=== PATIENT | female | born 1935 | race Caucasian/White ===

== ENCOUNTER 2016-11-18 09:35 | Observation (INO) ==
[2016-11-18] MEDS ORDERED: methylPREDNISolone SOD SUC 125 MG/2 ML VIAL IV STA (10:38)
[2016-11-18] MEDS ORDERED: FUROSEMIDE 100 MG/10 ML VIAL IV STA (10:38)
[2016-11-18] MEDS ORDERED: AZITHROMYCIN INJ 500 MG in SODIUM CHLORIDE 0.9% 250 ML IV STA (10:38)
[2016-11-18] MEDS ORDERED: ONDANSETRON 4 MG/2 ML VIAL IV STA (10:38)
[2016-11-18 10:46] LABS: Basophils % 0.2 % (0.0-0.8); Eosinophils # 0.1 10*3/uL (0.0-0.87); Eosinophils % 0.5 % (0.00-10.9); Hematocrit 36.7 VOL% (35.7-47.0); Hemoglobin 12.6 GM/DL (12.0-16.0); Immature Granulocytes % 0.7 %; Immature Granulocytes Absolute 0.07 #; Lymphocytes # 1.3 10*3/uL (1.4-4.0); Lymphocytes % 13.7 % (21.3-54.2); Mean Corpuscular HGB Conc 34.3 GM/DL (32-36); Mean Corpuscular Hemoglobin 31 PG (27-34); Mean Corpuscular Volume 90.6 FL (87-102); Mean Platelet Volume 9.5 FL (9.6-12.0); Monocytes # 1.1 10*3/uL (0.11-0.8); Monocytes % 11.2 % (1.7-12.7); Neutrophils # 7.1 10*3/uL (1.4-7.4); Neutrophils % 73.7 % (38.7-73.9); Platelet Count 170 T/CUMM (130-400); Red Blood Count 4.05 MC/CUMM (3.8-5.5); Red Cell Distribution Width 12.4 % (9.3-17.3); White Blood Count 9.7 T/CUMM (4-12)
[2016-11-18] MEDS ORDERED: ALBUTEROL 2.5 MG/3 ML NEB RESP TX SCH (11:00)
[2016-11-18 11:02] LABS: Albumin 3.2 G/DL (3.4-5.0); Bilirubin,Total 0.9 MG/DL (0.2-1.0); Magnesium 2.1 MG/DL (1.8-2.4); Osmolality,Calculated 272.8 MOS/KG (273-304); Potassium 3.8 MMOL/L (3.5-5.1); Total Protein 6.9 G/DL (6.4-8.3); Troponin I Only 0.068 NG/ML (0.00-0.045)
[2016-11-18 11:04] LABS: D-Dimer 1.3 MG/L FEU; PT Patient Result 10.8 SECS
[2016-11-18] MEDS ORDERED: AZITHROMYCIN 500 MG VIAL IV ONE (11:13)
[2016-11-18] MEDS ORDERED: FUROSEMIDE 40 MG/4 ML VIAL ONE (11:13)
[2016-11-18] MEDS ORDERED: ONDANSETRON 4 MG/2 ML VIAL ONE (11:13)
[2016-11-18] MEDS ORDERED: methylPREDNISolone SOD SUC 125 MG/2 ML VIAL ONE (11:14)
--- NOTE | 2016-11-18 11:42 | XRay Report ---
Exam: XR chest 1V portable Indication: Shortness of breath Comparison study: March 07, 2016 Findings: The heart, mediastinum and bony structures are stable from prior. Lungs are mildly hyperexpanded with diffuse interstitial scarring changes, which appear similar prior. Granulomatous calcified nodules are also noted in the perihilar regions bilaterally. Median sternotomy wiring appears stable from prior. Stable blunting of the left costophrenic angle. There is no focal consolidation, pneumothorax or pleural effusion identified. Impression: Chronic interstitial scarring and postsurgical changes. Otherwise, no significant change. PROCEDURE INTERPRETED AT [facility] DEPARTMENT OF RADIOLOGY Final Report Signed by: Torito Mcdowell
--- NOTE | 2016-11-18 11:43 | Emergency Department Note ---
ITyrone Kasabria, am scribing for, and in the presence of, Harman Morales MD 11:10. ICarmen Charles R, MD, personally performed the services described in this documentation, ascribed by Annamarie Hansen in my presence, and it is both accurate and complete . Arrival - Arrival Chief Complaint: Upper Respiratory Stated Complaint: SOB/BAD CONGESTION/DIZZINESS ED Nursing Triage Note: Pt states that she has been having some body aches with cough and congestion x 1 week - Pt states that she does have a productive cough - pt states that she has been taking OTC meds without relief Mode of Arrival: Ambulatory Limitations: No Limitations Source: Patient Time Seen by Provider: 11/18/16 10:22 - History of Present Illness HPI Narrative: Pt is a 81 y/o white female presenting to the ED with c/o body aches, cough, congestion that onset one week ago. She states she did not come to the ED earlier because she thought it would get better. Pt's cough is productive with dark brown sputum. She has been taking OTC medications with no relief. Pt denies fever, chills, nausea, vomiting, diarrhea, abdominal pain, back pain, VERDIN , and vision change. Consistency: constant Severity: moderate Date of Last Menstrual Period: hyster Allergies/Adverse Reactions: Allergies Allergy/AdvReac Type Severity Reaction Status Date / Time codeine Allergy Intermediate RASH Verified 03/06/16 02:50 Penicillins Allergy Intermediate RASH Verified 03/06/16 02:50 Sulfa (Sulfonamide Allergy Unknown/Unable Verified 03/06/16 02:50 Antibiotics) to obtain Home Medications: Home Medications Medication Instructions Recorded Confirmed Type Citalopram [CeleXA] 10 mg PO BEDTIME 03/06/16 11/18/16 History Multivitamin with Minerals [One 1 each PO DAILY 03/06/16 11/18/16 History Daily 50 Plus] Aspirin EC Tab 81 mg PO DAILY tablet 03/09/16 11/18/16 Rx Lisinopril [Prinivil] 20 mg PO DAILY #30 tablet 03/09/16 11/18/16 Rx Potassium Chloride Cap/Tab [K Dur] 20 meq PO DAILY tablet 03/09/16 11/18/16 Rx traZODone [Desyrel] 50 mg PO BEDTIME tablet 03/09/16 11/18/16 Rx Carvedilol [Coreg] 6.25 mg PO DAILY 11/18/16 11/18/16 History Furosemide Tab [Lasix Tab] 20 mg PO DAILY PRN 11/18/16 11/18/16 History Magnesium Oxide 400 mg PO DAILY 11/18/16 11/18/16 History Rosuvastatin [Crestor] 20 mg PO DAILY 11/18/16 11/18/16 History hydrALAZINE TAB [Apresoline Tab] 25 mg PO TID 11/18/16 11/18/16 History Medical,Surgical,& Family Hx - Medical History Cardio: History of: Cardiac Dysrhythmia, CHF, CAD, Hypertension, [place] (Dr Gonsales) , Cardiovascular Problems No history of: Congenital Heart Disease Psychological: History of: Anxiety Disorders (SVTPt denies) Neurology: History of: Dementia Endocrine: History of: Dyslipidemia Respiratory: History of: Pneumonia Genitourinary: History of: Bladder Problem Musculoskeletal: History of: Back/Neck Problems ("pinched nerve") Hematology: History of: Anemia - Surgical History Cardiac Surgeries: Sugical HX of: Femoral-Popliteal Bypass Graft, Cardiac Catheterization, Cardiac Surgery (TRIPLE BIPASS 15 YEARS AGO) Abdominal Surgeries: Surgical HX of: Appendectomy Reproductive Surgeries: Surgical HX of;: Genitourinary Surgery (bladder surgery) , Hysterectomy - Family History Family History: Reports;: Family Diabetes, Family Heart Disease, Family Hypertension, Family Stroke Denies;: Family Anesthesia Reaction, Family Cancer, Family Psychiatric Problems - Social History Smoking Status: Never smoker Frequency of Alcohol Use: None Type of Drug Use: None Exam Vital Signs: Vital Signs Temperature 98.9 F 11/18/16 10:00 Pulse Rate 78 11/18/16 11:36 Respiratory Rate 11/18/16 11:36 Blood Pressure 219/89 11/18/16 10:00 O2 Sat by Pulse Oximetry 98 11/18/16 11:36 - General General appearance: alert, in no apparent distress - Head Head exam: Present: atraumatic, normocephalic, normal inspection - Eye Eye exam: Present: normal appearance, PERRL, EOMI - ENT ENT exam: Present: normal exam, normal oropharynx, mucous membranes moist, TM's normal bilaterally, normal external ear exam - Neck Neck exam: Present: normal inspection, full ROM, trachea midline. Absent: tenderness - Chest Chest inspection: Present: normal inspection, symmetric chest wall rise - Respiratory Respiratory exam: Present: rales, wheezes (bilaterally ) - Cardiovascular Cardiovascular exam: Present: regular rate, normal rhythm, normal heart sounds - Abdominal Exam Abdominal exam: Present: soft, normal bowel sounds. Absent: distention, tenderness - Extremities Exam Extremities exam: Present: normal inspection, full ROM, normal capillary refill , pedal edema (+1 edema ). Absent: tenderness - Back Exam Back exam: Present: normal inspection, full ROM. Absent: tenderness - Neurological Exam Neurological exam: Present: alert, oriented X3, CN II-XII intact, normal gait, reflexes normal - Psychiatric Psychiatric exam: Present: normal affect, normal mood - Skin Skin exam: Present: warm, dry, intact, normal color. Absent: rash, diaphoresis Course - Consultations Consultation #1: Hospitalist will admit patient Time: 12:34 Results - Labs CBC & BMP: 11/18/16 10:44 11/18/16 10:44 Lab Results: I have reviewed the patients labs Disposition Clinical Impression: Upper respiratory infection, CHF (congestive heart failure), Bronchitis, Acute dyspnea Case discussed with: patient Disposition: Still a Patient Condition: Stable Time of Disposition: 12:34
--- NOTE | 2016-11-18 12:18 | EKG Report ---
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
[2016-11-18] MEDS ORDERED: hydrALAZINE 20 MG/1 ML VIAL IV PRN (13:13)
--- NOTE | 2016-11-18 13:24 | Hospitalist History & Physical ---
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 Guajardo is a 81 year old female who was in her usual state of health till about 4-5 days ago. She started coughing and is been bringing up yellow sputum which is fairly thick. She had some subjective fever. She took some over-the- counter medication but today her symptoms got worse. She felt some chest tightness with shortness of breath and cough and came to the emergency room. The ER physician evaluated her did notice some wheezing as well as some rhonchi and felt she would best benefit from overnight admission. She denies any nausea vomiting she does not smoke cigarettes she does not have any history of COPD or asthma. She has hypertension and had heart disease with prior bypass surgery 50 years ago and has done quite well. She does not endorse a definite history of heart failure but does take low-dose Lasix on a when necessary basis. Assessment and plan for 11/18/2016: Shortness of breath with acute bronchitis and sputum production Possible Combivent a mild pulmonary vascular congestion Hypertension Coronary artery disease Patient be admitted to our service for overnight observation. We will start on some nebulizers mucomyist for breaking loose her mucus along with DuoNeb nebulizers. We will also treat her with oral antibiotics and some steroids. I' m hoping this will improve her symptoms and every she can be discharged home tomorrow with outpatient management. Home Medications Medication Instructions Recorded Confirmed Type Citalopram [CeleXA] 10 mg PO BEDTIME 03/06/16 11/18/16 History Multivitamin with Minerals [One 1 each PO DAILY 03/06/16 11/18/16 History Daily 50 Plus] Aspirin EC Tab 81 mg PO DAILY tablet 03/09/16 11/18/16 Rx Lisinopril [Prinivil] 20 mg PO DAILY #30 tablet 03/09/16 11/18/16 Rx Potassium Chloride Cap/Tab [K Dur] 20 meq PO DAILY tablet 03/09/16 11/18/16 Rx traZODone [Desyrel] 50 mg PO BEDTIME tablet 03/09/16 11/18/16 Rx Carvedilol [Coreg] 6.25 mg PO DAILY 11/18/16 11/18/16 History Furosemide Tab [Lasix Tab] 20 mg PO DAILY PRN 11/18/16 11/18/16 History Magnesium Oxide 400 mg PO DAILY 11/18/16 11/18/16 History Rosuvastatin [Crestor] 20 mg PO DAILY 11/18/16 11/18/16 History hydrALAZINE TAB [Apresoline Tab] 25 mg PO TID 11/18/16 11/18/16 History Allergies Allergy/AdvReac Type Severity Reaction Status Date / Time codeine Allergy Intermediate RASH Verified 03/06/16 02:50 Penicillins Allergy Intermediate RASH Verified 03/06/16 02:50 Sulfa (Sulfonamide Allergy Unknown/Unable Verified 03/06/16 02:50 Antibiotics) to obtain Medical,Surgical,& Family Hx - Medical History Cardio: History of: Cardiac Dysrhythmia, CHF, CAD, Hypertension, [place] (Dr Gonsales) , Cardiovascular Problems No history of: Congenital Heart Disease Psychological: History of: Anxiety Disorders (SVTPt denies) Neurology: History of: Dementia Endocrine: History of: Dyslipidemia Respiratory: History of: Pneumonia Genitourinary: History of: Bladder Problem Musculoskeletal: History of: Back/Neck Problems ("pinched nerve") Hematology: History of: Anemia - Surgical History Cardiac Surgeries: Sugical HX of: Femoral-Popliteal Bypass Graft, Cardiac Catheterization, Cardiac Surgery (TRIPLE BIPASS 15 YEARS AGO) Abdominal Surgeries: Surgical HX of: Appendectomy Reproductive Surgeries: Surgical HX of;: Genitourinary Surgery (bladder surgery) , Hysterectomy - Family History Family History: Reports;: Family Diabetes, Family Heart Disease, Family Hypertension, Family Stroke Denies;: Family Anesthesia Reaction, Family Cancer, Family Psychiatric Problems - Social History Smoking Status: Never smoker Frequency of Alcohol Use: None Type of Drug Use: None Functional capacity: independent ambulation Exam - Constitutional Vitals: Period Temp Pulse Resp BP Sys/Acosta Pulse Ox Last 24 Hr 98.9 F 76-82 19-20 219/89 96-99 Exam: Gen.: In no acute distress Head and neck: Pupils are reactive neck is supple Cardiovascular: S1-S2 with regular rate and rhythm Respiratory: Lungs are clear to auscultation and percussion improved after nebulizers and steroids Abdomen: Soft, bowel sounds are positive Extremities: No edema Neuro: Grossly intact Results - Labs CBC & BMP: 11/18/16 10:44 11/18/16 10:44 Lab Results: I have reviewed the past 24 hour labs
[2016-11-18] MEDS ORDERED: ENOXAPARIN 40 MG/0.4 ML SYRINGE SUBCUT SCH (13:30)
[2016-11-18] MEDS: hydrALAZINE 25 MG TABLET PO SCH ×2 (15:03→21:25)
[2016-11-18] MEDS: LEVOFLOXACIN 500 MG TABLET PO SCH (15:03)
[2016-11-18 16:03] LABS: Troponin I Only 0.046 NG/ML (0.00-0.045)
[2016-11-18] MEDS: ACETYLCYSTEINE 20% 800 MG/4 ML VIAL RESP TX SCH ×2 (16:57→23:50)
[2016-11-18] MEDS: methylPREDNISolone SOD SUC 40 MG/1 ML VIAL IV SCH ×2 (17:55)
[2016-11-18] MEDS: ALBUTEROL/IPRATROPIUM 3 ML NEB RESP TX SCH ×2 (19:08→23:50)
[2016-11-18] MEDS ORDERED: CITALOPRAM 20 MG TABLET PO SCH (21:00)
[2016-11-18] MEDS ORDERED: traZODone 50 MG TABLET PO SCH (21:00)
[2016-11-19] MEDS: methylPREDNISolone SOD SUC 40 MG/1 ML VIAL IV SCH ×2 (03:38→10:50)
[2016-11-19 06:20] LABS: Basophils % 0.1 % (0.0-0.8); Hemoglobin 12.1 GM/DL (12.0-16.0); Immature Granulocytes % 1.3 %; Lymphocytes # 0.7 10*3/uL (1.4-4.0); Lymphocytes % 8.7 % (21.3-54.2); Mean Corpuscular HGB Conc 34.6 GM/DL (32-36); Mean Corpuscular Hemoglobin 31 PG (27-34); Mean Corpuscular Volume 90.7 FL (87-102); Mean Platelet Volume 9.5 FL (9.6-12.0); Monocytes # 0.3 10*3/uL (0.11-0.8); Monocytes % 4.1 % (1.7-12.7); Neutrophils # 6.6 10*3/uL (1.4-7.4); Neutrophils % 85.8 % (38.7-73.9); Platelet Count 180 T/CUMM (130-400); Red Blood Count 3.86 MC/CUMM (3.8-5.5); Red Cell Distribution Width 12.1 % (9.3-17.3); White Blood Count 7.6 T/CUMM (4-12)
[2016-11-19 06:55] LABS: Calcium 8.7 MG/DL (8.5-10.1); Magnesium 2.2 MG/DL (1.8-2.4); Osmolality,Calculated 278.8 MOS/KG (273-304)
[2016-11-19] MEDS: ACETYLCYSTEINE 20% 800 MG/4 ML VIAL RESP TX SCH (07:17)
[2016-11-19] MEDS: ALBUTEROL/IPRATROPIUM 3 ML NEB RESP TX SCH (07:17)
[2016-11-19] MEDS ORDERED: CARVEDILOL 6.25 MG TABLET PO SCH (09:00)
[2016-11-19] MEDS ORDERED: FUROSEMIDE 40 MG/4 ML VIAL IV SCH (09:00)
[2016-11-19] MEDS ORDERED: MAGNESIUM OXIDE 400 MG TABLET PO SCH (09:00)
[2016-11-19] MEDS ORDERED: MULTIVITAMIN WITH MINERALS PO SCH (09:00)
[2016-11-19] MEDS ORDERED: ASPIRIN EC 81 MG TABLET PO SCH (09:00)
[2016-11-19] MEDS ORDERED: LISINOPRIL 20 MG TABLET PO SCH (09:00)
[2016-11-19] MEDS ORDERED: ROSUVASTATIN 20 MG TABLET PO SCH (09:00)
[2016-11-19] MEDS ORDERED: POTASSIUM CHLORIDE 20 MEQ TABLET PO SCH (09:00)
[2016-11-19] MEDS: hydrALAZINE 25 MG TABLET PO SCH (09:23)
[2016-11-19] MEDS: LEVOFLOXACIN 500 MG TABLET PO SCH (09:24)
[2016-11-19] MEDS ORDERED: ACETAMINOPHEN 325 MG TABLET PO PRN (10:10)
--- NOTE | 2016-11-19 10:53 | Discharge Summary ---
Hospital Course - Hospital Course Hospital Course: Patient was admitted yesterday after coming in with bronchitis but was having some shortness of breath and initially was apparently having some wheezing. She had thick sputum production. Her chest x-ray did not show an acute infiltrate. She was admitted overnight. Blood pressure is controlled. She was placed on antibiotics and nebulizers with marked improvement in her symptoms. Currently her blood pressure is better controlled at about 160 systolic and her oxygen saturation is normal. She is in no acute distress. We discussed management issues and it is felt that she condition be discharged home today on oral antibiotics and Mucinex with follow-up with a family physician in 2-3 days. - Time spent with patient Time with patient DS: Less than 30 minutes Diagnosis - Discharge Diagnosis (1) Bronchitis Status: Acute (2) Acute dyspnea Status: Acute Discharge Plan - Discharge Data Condition at Discharge: Stable Activity: resume usual activities as tolerated - Discharge Medications New RX: Doxycycline Hyclate Cap [Vibramycin Cap] 100 mg PO BID #10 capsule guaiFENesin/DM ER 600-30 [Mucinex Dm 600-30 MG] 1 tablet PO BID #10 tablet RX: predniSONE TAB [PredniSONE] 20 mg PO DAILY #3 tablet Continue RX: Citalopram [CeleXA] 10 mg PO BEDTIME RX: Multivitamin with Minerals [One Daily 50 Plus] 1 each PO DAILY RX: Aspirin EC Tab 81 mg PO DAILY tablet RX: Lisinopril [Prinivil] 20 mg PO DAILY #30 tablet RX: Potassium Chloride Cap/Tab [K Dur] 20 meq PO DAILY tablet RX: traZODone [Desyrel] 50 mg PO BEDTIME tablet RX: Carvedilol [Coreg] 6.25 mg PO DAILY RX: hydrALAZINE TAB [Apresoline Tab] 25 mg PO TID RX: Furosemide Tab [Lasix Tab] 20 mg PO DAILY PRN PRN Reason: Shortness Of Breath RX: Rosuvastatin [Crestor] 20 mg PO DAILY RX: Magnesium Oxide 400 mg PO DAILY - Follow Up or Referral Follow Up: Hailee Singh M.D. [Physician] - 3 Days - Forms/Instructions Exam - Constitutional Vitals: Period Temp Pulse Resp BP Sys/Acosta Pulse Ox Last 24 Hr 97.6 F-98.8 F 76-97 18-22 146-181/65-80 91-100 Discharge Results Labs on day of discharge: Labs from last 24 hours 11/19/16 11/19/16 11/18/16 06:06 06:06 14:54 WBC 7.6 RBC 3.86 Hgb 12.1 Hct 35.0 L MCV 90.7 MCH 31 MCHC 34.6 RDW 12.1 Plt Count 180 MPV 9.5 L Neut % (Auto) 85.8 H Lymph % (Auto) 8.7 L [place] % (Auto) 4.1 Eos % (Auto) 0.0 Baso % (Auto) 0.1 Neut # (Auto) 6.6 Lymph # (Auto) 0.7 L [place] # (Auto) 0.3 Eos # (Auto) 0.0 Baso # (Auto) 0.0 Immature Gran % 1.3 Nucleated RBC % 0.0 Immature Gran # 0.10 Nucleated RBCs # 0.00 Sodium 137 Potassium 4.0 Chloride 98 Carbon Dioxide 30 Anion Gap 13.0 BUN 16 Creatinine 0.70 GFR Calculation 76 BUN/Creatinine Ratio 22.00 H Glucose 192 H Calculated Osmolality 278.8 Calcium 8.7 Magnesium 2.2 Total Creatine Kinase 79 CK-MB (CK-2) 1.2 Troponin I 0.046 H D DS: Provider Date of admission: 11/18/16 13:10 Primary care physician: . No PCP Attending physician on admission: Bart Valentine MD Consults: 11/18/16 15:48 Consult to Dietitian [CONS] Routine Reason for Dietitian: Other Consult Comment: weight loss Discharging clinician: Bart Valentine MD
[2016-11-19 12:05] VITALS: BP 164/78
== END 2016-11-19 12:30 | disposition home or self-care (01) ==
LOC: N.EDINP 09:35 → N.ED 09:35 → N.5E 14:21
PROVIDERS: ADMIT Internal Medicine; ATTEND Internal Medicine

== ENCOUNTER 2018-01-15 14:52 | Inpatient (IN) ==
[2018-01-15] MEDS ORDERED: ALBUTEROL/IPRATROPIUM 3 ML NEB RESP TX PRN (14:56)
[2018-01-15] MEDS ORDERED: AMINOPHYLLINE 250 MG in SODIUM CHLORIDE 0.9% 100 ML IV ONE (16:00)
[2018-01-15] MEDS: BENZONATATE 100 MG CAPSULE PO SCH ×2 (16:35→20:22)
[2018-01-15] MEDS: methylPREDNISolone SOD SUC 40 MG/1 ML VIAL IV SCH ×2 (16:35→23:17)
[2018-01-15] MEDS: DEXTROSE 5% NACL 0.45% 1,000 ML IV SCH (16:40)
[2018-01-15 17:45] LABS: Basophils % 0.4 % (0.0-0.8); Eosinophils # 0.2 10*3/uL (0.0-0.87); Eosinophils % 2.7 % (0.00-10.9); Hematocrit 38.9 VOL% (35.7-47.0); Hemoglobin 13.9 GM/DL (12.0-16.0); Immature Granulocytes % 0.1 %; Immature Granulocytes Absolute 0.01 #; Lymphocytes # 2.2 10*3/uL (1.4-4.0); Lymphocytes % 30.7 % (21.3-54.2); Mean Corpuscular HGB Conc 35.7 GM/DL (32-36); Mean Corpuscular Hemoglobin 32 PG (27-34); Mean Corpuscular Volume 88.8 FL (87-102); Mean Platelet Volume 9.9 FL (9.6-12.0); Monocytes # 0.7 10*3/uL (0.11-0.8); Monocytes % 9.2 % (1.7-12.7); Neutrophils # 4.1 10*3/uL (1.4-7.4); Neutrophils % 56.9 % (38.7-73.9); Platelet Count 163 T/CUMM (130-400); Red Blood Count 4.38 MC/CUMM (3.8-5.5); Red Cell Distribution Width 13.2 % (9.3-17.3); White Blood Count 7.3 T/CUMM (4-12)
[2018-01-15 18:13] LABS: Albumin 3.6 G/DL (3.4-5.0); Bilirubin,Total 0.7 MG/DL (0.2-1.0); Calcium 8.9 MG/DL (8.5-10.1); Osmolality,Calculated 275.1 MOS/KG (273-304); Thyroid Stimulating Hormone 0.956 uIU/ml (0.358-3.74); Total Protein 6.2 G/DL (6.4-8.3)
[2018-01-15] MEDS ORDERED: FUROSEMIDE 20 MG TABLET PO PRN (18:29)
[2018-01-15] MEDS: DORNASE ALFA 2.5 MG/2.5 ML VIAL RESP TX SCH (19:50)
[2018-01-15] MEDS: ALBUTEROL/IPRATROPIUM 3 ML NEB RESP TX SCH (19:50)
[2018-01-15] MEDS: hydrALAZINE 25 MG TABLET PO SCH (20:23)
[2018-01-15] MEDS: CITALOPRAM 20 MG TABLET PO SCH (20:23)
[2018-01-15] MEDS: traZODone 50 MG TABLET PO SCH (20:23)
[2018-01-15] MEDS: MONTELUKAST 10 MG TABLET PO SCH (20:23)
[2018-01-15 21:46] LABS: Apearance,Urine Slightly Hazy (Clear); Bacteria,Urine Occasional /HPF (Few); Bilirubin,Urine Negative (Negative); Blood, Urine Negative (Negative); Glucose,Urine (UA) Negative (Negative); Hyaline Casts,Urine 2 /LPF (0-3); Ketones,Urine 5 mg/dL (Negative); Mucus,Urine Occasional /LPF (Occasional); Nitrite,Urine Negative (Negative); Protein,Urine Negative; RBC,Urine 6 /HPF (0-4); Squamous Epithelial Cell,Urine Occasional /HPF (0-10); Urine Color Amber (Yellow); Urine Specific Gravity 1.021 (1.001-1.035); WBC,Urine 9 /HPF (0-6)
[2018-01-15] MEDS: AMINOPHYLLINE 500 MG in SODIUM CHLORIDE 0.9% 480 ML IV SCH (21:47)
[2018-01-16 07:14] LABS: Basophils % 0.2 % (0.0-0.8); Hematocrit 37.5 VOL% (35.7-47.0); Hemoglobin 12.9 GM/DL (12.0-16.0); Immature Granulocytes % 0.5 %; Immature Granulocytes Absolute 0.02 #; Lymphocytes # 0.9 10*3/uL (1.4-4.0); Lymphocytes % 22.5 % (21.3-54.2); Mean Corpuscular HGB Conc 34.4 GM/DL (32-36); Mean Corpuscular Hemoglobin 31 PG (27-34); Mean Corpuscular Volume 90.4 FL (87-102); Mean Platelet Volume 10.3 FL (9.6-12.0); Monocytes # 0.1 10*3/uL (0.11-0.8); Monocytes % 1.7 % (1.7-12.7); Neutrophils # 3.1 10*3/uL (1.4-7.4); Neutrophils % 75.1 % (38.7-73.9); Platelet Count 142 T/CUMM (130-400); Red Blood Count 4.15 MC/CUMM (3.8-5.5); Red Cell Distribution Width 12.9 % (9.3-17.3); White Blood Count 4.1 T/CUMM (4-12)
[2018-01-16 07:40] LABS: Calcium 8.2 MG/DL (8.5-10.1); Osmolality,Calculated 273.1 MOS/KG (273-304); Potassium 3.8 MMOL/L (3.5-5.1)
[2018-01-16] MEDS: DORNASE ALFA 2.5 MG/2.5 ML VIAL RESP TX SCH ×2 (08:02→20:12)
[2018-01-16] MEDS: ALBUTEROL/IPRATROPIUM 3 ML NEB RESP TX SCH ×4 (08:02→20:12)
[2018-01-16] MEDS: BENZONATATE 100 MG CAPSULE PO SCH ×3 (08:18→20:39)
[2018-01-16] MEDS: MAGNESIUM OXIDE 400 MG TABLET PO SCH (08:19)
[2018-01-16] MEDS: ASPIRIN EC 81 MG TABLET PO SCH (08:19)
[2018-01-16] MEDS: POTASSIUM CHLORIDE 20 MEQ TABLET PO SCH (08:19)
[2018-01-16] MEDS: MONTELUKAST 10 MG TABLET PO SCH ×2 (08:19→20:39)
[2018-01-16] MEDS: CARVEDILOL 6.25 MG TABLET PO SCH (08:19)
[2018-01-16] MEDS: methylPREDNISolone SOD SUC 40 MG/1 ML VIAL IV SCH ×3 (08:19→23:57)
[2018-01-16] MEDS: DEXTROSE 5% NACL 0.45% 1,000 ML IV SCH (08:19)
[2018-01-16] MEDS: ROSUVASTATIN 20 MG TABLET PO SCH (08:19)
[2018-01-16] MEDS: hydrALAZINE 25 MG TABLET PO SCH ×3 (08:19→20:39)
[2018-01-16] MEDS: LEVOFLOXACIN INJ 250 MG in PREMIX 1 EACH IV SCH (11:49)
[2018-01-16] MEDS ORDERED: FUROSEMIDE 20 MG/2 ML VIAL IV ONE (12:29)
[2018-01-16] MEDS: traZODone 50 MG TABLET PO SCH (20:39)
[2018-01-16] MEDS: CITALOPRAM 20 MG TABLET PO SCH (20:39)
[2018-01-16] MEDS: AMINOPHYLLINE 500 MG in SODIUM CHLORIDE 0.9% 480 ML IV SCH (20:42)
[2018-01-17] MEDS: DEXTROSE 5% NACL 0.45% 1,000 ML IV SCH (00:01)
[2018-01-17] MEDS: ALBUTEROL/IPRATROPIUM 3 ML NEB RESP TX SCH ×4 (06:53→20:11)
[2018-01-17] MEDS: DORNASE ALFA 2.5 MG/2.5 ML VIAL RESP TX SCH ×2 (06:53→20:11)
[2018-01-17] MEDS: ROSUVASTATIN 20 MG TABLET PO SCH (08:16)
[2018-01-17] MEDS: MONTELUKAST 10 MG TABLET PO SCH ×2 (08:16→21:22)
[2018-01-17] MEDS: BENZONATATE 100 MG CAPSULE PO SCH ×3 (08:16→21:22)
[2018-01-17] MEDS: CARVEDILOL 6.25 MG TABLET PO SCH ×2 (08:17→21:21)
[2018-01-17] MEDS: MAGNESIUM OXIDE 400 MG TABLET PO SCH (08:17)
[2018-01-17] MEDS: POTASSIUM CHLORIDE 20 MEQ TABLET PO SCH (08:17)
[2018-01-17] MEDS: hydrALAZINE 25 MG TABLET PO SCH ×3 (08:17→21:21)
[2018-01-17] MEDS: ASPIRIN EC 81 MG TABLET PO SCH (08:17)
[2018-01-17] MEDS: methylPREDNISolone SOD SUC 40 MG/1 ML VIAL IV SCH ×2 (08:18→15:09)
[2018-01-17] MEDS: LEVOFLOXACIN INJ 250 MG in PREMIX 1 EACH IV SCH (10:20)
[2018-01-17] MEDS ORDERED: CARVEDILOL 3.125 MG TABLET PO ONE (12:57)
[2018-01-17] MEDS ORDERED: CARVEDILOL 3.125 MG TABLET PO SCH (21:00)
[2018-01-17] MEDS: traZODone 50 MG TABLET PO SCH (21:22)
[2018-01-17] MEDS: CITALOPRAM 20 MG TABLET PO SCH (21:22)
[2018-01-18] MEDS: methylPREDNISolone SOD SUC 40 MG/1 ML VIAL IV SCH ×3 (00:14→15:08)
[2018-01-18] MEDS: AMINOPHYLLINE 500 MG in SODIUM CHLORIDE 0.9% 480 ML IV SCH ×2 (00:37→22:06)
[2018-01-18] MEDS: ALBUTEROL/IPRATROPIUM 3 ML NEB RESP TX SCH ×4 (07:08→19:36)
[2018-01-18] MEDS: DORNASE ALFA 2.5 MG/2.5 ML VIAL RESP TX SCH ×2 (07:08→19:36)
[2018-01-18] MEDS: MAGNESIUM OXIDE 400 MG TABLET PO SCH (08:45)
[2018-01-18] MEDS: ASPIRIN EC 81 MG TABLET PO SCH (08:46)
[2018-01-18] MEDS: ROSUVASTATIN 20 MG TABLET PO SCH (08:46)
[2018-01-18] MEDS: CARVEDILOL 6.25 MG TABLET PO SCH ×2 (08:46→22:05)
[2018-01-18] MEDS: hydrALAZINE 25 MG TABLET PO SCH ×3 (08:46→22:04)
[2018-01-18] MEDS: BENZONATATE 100 MG CAPSULE PO SCH ×3 (08:46→22:03)
[2018-01-18] MEDS: MONTELUKAST 10 MG TABLET PO SCH ×2 (08:46→22:03)
[2018-01-18] MEDS: POTASSIUM CHLORIDE 20 MEQ TABLET PO SCH (08:46)
[2018-01-18] MEDS: LEVOFLOXACIN INJ 250 MG in PREMIX 1 EACH IV SCH (10:34)
[2018-01-18] MEDS: traZODone 50 MG TABLET PO SCH (22:03)
[2018-01-18] MEDS: CITALOPRAM 20 MG TABLET PO SCH (22:04)
[2018-01-19] MEDS: methylPREDNISolone SOD SUC 40 MG/1 ML VIAL IV SCH ×4 (00:47→23:45)
[2018-01-19] MEDS: DORNASE ALFA 2.5 MG/2.5 ML VIAL RESP TX SCH ×2 (07:15→20:20)
[2018-01-19] MEDS: ALBUTEROL/IPRATROPIUM 3 ML NEB RESP TX SCH ×4 (07:15→20:20)
[2018-01-19] MEDS: LEVOFLOXACIN INJ 250 MG in PREMIX 1 EACH IV SCH ×2 (09:19→10:33)
[2018-01-19] MEDS: ROSUVASTATIN 20 MG TABLET PO SCH (09:20)
[2018-01-19] MEDS: BENZONATATE 100 MG CAPSULE PO SCH ×3 (09:20→20:48)
[2018-01-19] MEDS: MAGNESIUM OXIDE 400 MG TABLET PO SCH (09:21)
[2018-01-19] MEDS: MONTELUKAST 10 MG TABLET PO SCH ×2 (09:21→20:48)
[2018-01-19] MEDS: ASPIRIN EC 81 MG TABLET PO SCH (09:21)
[2018-01-19] MEDS: hydrALAZINE 25 MG TABLET PO SCH ×3 (09:21→20:48)
[2018-01-19] MEDS: POTASSIUM CHLORIDE 20 MEQ TABLET PO SCH (09:21)
[2018-01-19] MEDS: CARVEDILOL 6.25 MG TABLET PO SCH ×2 (09:21→20:48)
[2018-01-19] MEDS: IRBESARTAN 150 MG TABLET PO SCH (12:32)
[2018-01-19] MEDS: CITALOPRAM 20 MG TABLET PO SCH (20:48)
[2018-01-19] MEDS: traZODone 50 MG TABLET PO SCH (20:48)
[2018-01-20] MEDS: AMINOPHYLLINE 500 MG in SODIUM CHLORIDE 0.9% 480 ML IV SCH (00:46)
[2018-01-20] MEDS: POTASSIUM CHLORIDE 20 MEQ TABLET PO SCH (08:01)
[2018-01-20] MEDS: MONTELUKAST 10 MG TABLET PO SCH ×2 (08:01→20:18)
[2018-01-20] MEDS: MAGNESIUM OXIDE 400 MG TABLET PO SCH (08:02)
[2018-01-20] MEDS: ASPIRIN EC 81 MG TABLET PO SCH (08:02)
[2018-01-20] MEDS: ROSUVASTATIN 20 MG TABLET PO SCH (08:02)
[2018-01-20] MEDS: BENZONATATE 100 MG CAPSULE PO SCH ×3 (08:02→20:17)
[2018-01-20] MEDS: CARVEDILOL 6.25 MG TABLET PO SCH ×2 (08:02→20:18)
[2018-01-20] MEDS: IRBESARTAN 150 MG TABLET PO SCH (08:02)
[2018-01-20] MEDS: methylPREDNISolone SOD SUC 40 MG/1 ML VIAL IV SCH ×3 (08:02→23:36)
[2018-01-20] MEDS: hydrALAZINE 25 MG TABLET PO SCH ×3 (08:02→20:18)
[2018-01-20 08:36] LABS: Hematocrit 40.8 VOL% (35.7-47.0); Hemoglobin 14.4 GM/DL (12.0-16.0); Immature Granulocytes % 0.6 %; Immature Granulocytes Absolute 0.04 #; Lymphocytes # 0.7 10*3/uL (1.4-4.0); Lymphocytes % 10.2 % (21.3-54.2); Mean Corpuscular HGB Conc 35.3 GM/DL (32-36); Mean Corpuscular Hemoglobin 32 PG (27-34); Mean Corpuscular Volume 89.7 FL (87-102); Mean Platelet Volume 10.3 FL (9.6-12.0); Monocytes # 0.4 10*3/uL (0.11-0.8); Monocytes % 6.3 % (1.7-12.7); Neutrophils # 5.7 10*3/uL (1.4-7.4); Neutrophils % 82.9 % (38.7-73.9); Platelet Count 164 T/CUMM (130-400); Red Blood Count 4.55 MC/CUMM (3.8-5.5); Red Cell Distribution Width 12.9 % (9.3-17.3); White Blood Count 6.9 T/CUMM (4-12)
[2018-01-20] MEDS: DORNASE ALFA 2.5 MG/2.5 ML VIAL RESP TX SCH ×2 (09:00→19:22)
[2018-01-20] MEDS: ALBUTEROL/IPRATROPIUM 3 ML NEB RESP TX SCH ×4 (09:00→19:17)
[2018-01-20] MEDS: LEVOFLOXACIN INJ 250 MG in PREMIX 1 EACH IV SCH (10:38)
[2018-01-20] MEDS: THEOPHYLLINE ER (24 HR) 200 MG CAPSULE PO SCH (12:04)
[2018-01-20] MEDS: CITALOPRAM 20 MG TABLET PO SCH (20:17)
[2018-01-20] MEDS: traZODone 50 MG TABLET PO SCH (20:18)
[2018-01-21 06:39] LABS: Calcium 7.9 MG/DL (8.5-10.1); Osmolality,Calculated 273.4 MOS/KG (273-304); Potassium 4.3 MMOL/L (3.5-5.1)
[2018-01-21] MEDS: ALBUTEROL/IPRATROPIUM 3 ML NEB RESP TX SCH ×2 (08:00→10:57)
[2018-01-21] MEDS: DORNASE ALFA 2.5 MG/2.5 ML VIAL RESP TX SCH (08:00)
[2018-01-21] MEDS: BENZONATATE 100 MG CAPSULE PO SCH (08:15)
[2018-01-21] MEDS: ROSUVASTATIN 20 MG TABLET PO SCH (08:15)
[2018-01-21] MEDS: IRBESARTAN 150 MG TABLET PO SCH (08:15)
[2018-01-21] MEDS: hydrALAZINE 25 MG TABLET PO SCH (08:15)
[2018-01-21] MEDS: MONTELUKAST 10 MG TABLET PO SCH (08:15)
[2018-01-21] MEDS: MAGNESIUM OXIDE 400 MG TABLET PO SCH (08:16)
[2018-01-21] MEDS: methylPREDNISolone SOD SUC 40 MG/1 ML VIAL IV SCH (08:16)
[2018-01-21] MEDS: CARVEDILOL 6.25 MG TABLET PO SCH (08:16)
[2018-01-21] MEDS: ASPIRIN EC 81 MG TABLET PO SCH (08:16)
[2018-01-21] MEDS: POTASSIUM CHLORIDE 20 MEQ TABLET PO SCH (08:16)
[2018-01-21] MEDS: LEVOFLOXACIN INJ 250 MG in PREMIX 1 EACH IV SCH (10:49)
[2018-01-21] MEDS: THEOPHYLLINE ER (24 HR) 200 MG CAPSULE PO SCH (11:42)
[2018-01-21 12:31] VITALS: BP 155/70
== END 2018-01-21 12:42 | disposition home or self-care (01) | DRG 202 ==
LOC: N.5E 15:14
PROVIDERS: ADMIT Internal Medicine Pulmonary Disease; ATTEND Internal Medicine Pulmonary Disease

== ENCOUNTER 2019-02-09 16:35 | Inpatient (IN) ==
[2019-02-09] MEDS ORDERED: ALBUTEROL 2.5 MG/3 ML NEB RESP TX STA (17:34)
[2019-02-09] MEDS ORDERED: FUROSEMIDE 100 MG/10 ML VIAL IV STA (17:34)
[2019-02-09 18:09] LABS: Basophils % 0.4 % (0.0-0.8); Eosinophils # 0.1 10*3/uL (0.0-0.87); Eosinophils % 1.2 % (0.00-10.9); Hematocrit 37.4 VOL% (35.7-47.0); Hemoglobin 12.4 GM/DL (12.0-16.0); Immature Granulocytes % 0.3 %; Immature Granulocytes Absolute 0.03 #; Lymphocytes # 0.9 10*3/uL (1.4-4.0); Lymphocytes % 9.4 % (21.3-54.2); Mean Corpuscular HGB Conc 33.2 GM/DL (32-36); Mean Corpuscular Volume 94.4 FL (87-102); Monocytes % 8.9 % (1.7-12.7); Neutrophils % 79.8 % (38.7-73.9); Platelet Count 114 T/CUMM (130-400); Red Blood Count 3.96 MC/CUMM (3.8-5.5); Red Cell Distribution Width 13.5 % (9.3-17.3); White Blood Count 9.9 T/CUMM (4-12)
[2019-02-09 18:19] LABS: PT Patient Result 11.2 SECS; Partial Thromboplastin Time 27.1 SECS (0-40)
[2019-02-09 18:34] LABS: Albumin 3.6 G/DL (3.4-5.0); Calcium 9.2 MG/DL (8.5-10.1); Osmolality,Calculated 279.4 MOS/KG (273-304); Total Protein 6.2 G/DL (6.4-8.3)
[2019-02-09 18:52] LABS: Apearance,Urine CLEAR (Clear); Bilirubin,Urine Negative (Negative); Blood, Urine Negative (Negative); Glucose,Urine (UA) Negative (Negative); Hyaline Casts,Urine 1 /LPF (0-3); Ketones,Urine 5 mg/dL (Negative); Mucus,Urine Occasional /LPF (Occasional); Nitrite,Urine Negative (Negative); Protein,Urine 100 MG/DL; RBC,Urine 9 /HPF (0-4); Squamous Epithelial Cell,Urine Occasional /HPF (0-10); Urine Color Yellow (Yellow); Urine Specific Gravity 1.019 (1.001-1.035); Urine Urobilinogen < 2.0 EU/DL (0.2-1.0); WBC,Urine 4 /HPF (0-6)
[2019-02-09] MEDS ORDERED: LEVOFLOXACIN INJ 500 MG in PREMIX 1 EACH IV STA (19:02)
[2019-02-09] MEDS ORDERED: POTASSIUM BUCCAL STA (19:10)
[2019-02-09] MEDS ORDERED: DOCUSATE SODIUM 100 MG CAPSULE PO PRN (20:36)
[2019-02-09] MEDS ORDERED: ONDANSETRON 4 MG/2 ML VIAL IV PRN (20:36)
[2019-02-09] MEDS ORDERED: guaiFENesin/DM ER 600-30 MG TABLET PO PRN (20:36)
[2019-02-09] MEDS ORDERED: ACETAMINOPHEN 325 MG TABLET PO PRN (20:36)
[2019-02-09] MEDS ORDERED: LACTULOSE 20 GM/30 ML UDCUP PO PRN (20:36)
[2019-02-09] MEDS: POTASSIUM CHLORIDE 20 MEQ TABLET PO SCH (22:09)
[2019-02-09] MEDS: ENOXAPARIN 40 MG/0.4 ML SYRINGE SUBCUT SCH (22:09)
[2019-02-09] MEDS: traZODone 50 MG TABLET PO SCH (22:09)
[2019-02-09] MEDS: ROSUVASTATIN 20 MG TABLET PO SCH (22:09)
[2019-02-09] MEDS: LOSARTAN 50 MG TABLET PO SCH (22:10)
[2019-02-09] MEDS: CARVEDILOL 25 MG TABLET PO SCH (22:10)
[2019-02-09] MEDS: ALBUTEROL/IPRATROPIUM 3 ML NEB RESP TX SCH (23:08)
[2019-02-09] MEDS: MEROPENEM 1,000 MG in SODIUM CHLORIDE 0.9% 100 ML IV SCH (23:20)
[2019-02-10] MEDS: POTASSIUM CHLORIDE 20 MEQ TABLET PO SCH ×3 (02:18→10:24)
[2019-02-10] MEDS: ALBUTEROL/IPRATROPIUM 3 ML NEB RESP TX SCH ×5 (03:11→19:59)
[2019-02-10] MEDS ORDERED: FUROSEMIDE 40 MG/4 ML VIAL IV ONE ×2 (07:00→07:42)
[2019-02-10 08:14] LABS: Basophils % 0.3 % (0.0-0.8); Eosinophils % 0.1 % (0.00-10.9); Hematocrit 35.5 VOL% (35.7-47.0); Hemoglobin 12.2 GM/DL (12.0-16.0); Immature Granulocytes % 0.2 %; Immature Granulocytes Absolute 0.02 #; Lymphocytes # 1.2 10*3/uL (1.4-4.0); Lymphocytes % 11.7 % (21.3-54.2); Mean Corpuscular HGB Conc 34.4 GM/DL (32-36); Mean Corpuscular Volume 92.2 FL (87-102); Mean Platelet Volume 10.1 FL (9.6-12.0); Monocytes % 9.1 % (1.7-12.7); Neutrophils % 78.6 % (38.7-73.9); Platelet Count 128 T/CUMM (130-400); Red Blood Count 3.85 MC/CUMM (3.8-5.5); Red Cell Distribution Width 13.5 % (9.3-17.3); White Blood Count 9.9 T/CUMM (4-12)
[2019-02-10 08:29] LABS: Osmolality,Calculated 274.7 MOS/KG (273-304)
[2019-02-10] MEDS: MULTIVITAMIN (CENTRUM) TABLET PO SCH (10:23)
[2019-02-10] MEDS: MAGNESIUM OXIDE 400 MG TABLET PO SCH (10:23)
[2019-02-10] MEDS: ASCORBIC ACID 500 MG TABLET PO SCH (10:23)
[2019-02-10] MEDS: CHOLECALCIFEROL 1,000 UNIT TABLET PO SCH (10:23)
[2019-02-10] MEDS: PANTOPRAZOLE 40 MG TABLET PO SCH (10:23)
[2019-02-10] MEDS: LOSARTAN 50 MG TABLET PO SCH ×2 (10:24→20:47)
[2019-02-10] MEDS: CARVEDILOL 25 MG TABLET PO SCH ×2 (10:24→20:47)
[2019-02-10] MEDS: ASPIRIN EC 81 MG TABLET PO SCH (10:24)
[2019-02-10] MEDS: MEROPENEM 1,000 MG in SODIUM CHLORIDE 0.9% 100 ML IV SCH ×2 (10:25→21:30)
[2019-02-10] MEDS: methylPREDNISolone SOD SUC 40 MG/1 ML VIAL IV SCH ×2 (11:43→23:43)
[2019-02-10] MEDS: MONTELUKAST 10 MG TABLET PO SCH (11:43)
[2019-02-10] MEDS ORDERED: AMINOPHYLLINE 250 MG in SODIUM CHLORIDE 0.9% 100 ML IV ONE (12:00)
[2019-02-10] MEDS: POTASSIUM CHLORIDE 20 MEQ TABLET PO PRN ×4 (12:24→17:20)
[2019-02-10] MEDS: AMINOPHYLLINE 500 MG in SODIUM CHLORIDE 0.9% 480 ML IV SCH (17:20)
[2019-02-10] MEDS: ENOXAPARIN 40 MG/0.4 ML SYRINGE SUBCUT SCH (20:46)
[2019-02-10] MEDS: LEVOFLOXACIN 500 MG TABLET PO SCH (20:47)
[2019-02-10] MEDS: ZALEPLON 5 MG CAPSULE PO PRN (20:47)
[2019-02-10] MEDS: ROSUVASTATIN 20 MG TABLET PO SCH (20:47)
[2019-02-10] MEDS: traZODone 50 MG TABLET PO SCH (20:47)
[2019-02-11] MEDS: ALBUTEROL/IPRATROPIUM 3 ML NEB RESP TX SCH ×7 (00:18→23:20)
[2019-02-11 05:05] LABS: Basophils % 0.2 % (0.0-0.8); Hematocrit 33.8 VOL% (35.7-47.0); Hemoglobin 11.6 GM/DL (12.0-16.0); Immature Granulocytes % 0.3 %; Immature Granulocytes Absolute 0.02 #; Lymphocytes # 0.6 10*3/uL (1.4-4.0); Lymphocytes % 8.9 % (21.3-54.2); Mean Corpuscular HGB Conc 34.3 GM/DL (32-36); Mean Corpuscular Volume 93.1 FL (87-102); Mean Platelet Volume 10.9 FL (9.6-12.0); Monocytes % 2.8 % (1.7-12.7); Neutrophils % 87.8 % (38.7-73.9); Platelet Count 119 T/CUMM (130-400); Red Blood Count 3.63 MC/CUMM (3.8-5.5); Red Cell Distribution Width 13.4 % (9.3-17.3); White Blood Count 6.4 T/CUMM (4-12)
[2019-02-11 05:31] LABS: Calcium 8.7 MG/DL (8.5-10.1)
[2019-02-11] MEDS: ASCORBIC ACID 500 MG TABLET PO SCH (08:52)
[2019-02-11] MEDS: MULTIVITAMIN (CENTRUM) TABLET PO SCH (08:52)
[2019-02-11] MEDS: CARVEDILOL 25 MG TABLET PO SCH ×2 (08:52→21:03)
[2019-02-11] MEDS: MONTELUKAST 10 MG TABLET PO SCH (08:52)
[2019-02-11] MEDS: CHOLECALCIFEROL 1,000 UNIT TABLET PO SCH (08:52)
[2019-02-11] MEDS: FUROSEMIDE 20 MG TABLET PO SCH (08:52)
[2019-02-11] MEDS: LOSARTAN 50 MG TABLET PO SCH ×2 (08:53→21:03)
[2019-02-11] MEDS: PANTOPRAZOLE 40 MG TABLET PO SCH (08:53)
[2019-02-11] MEDS: MAGNESIUM OXIDE 400 MG TABLET PO SCH (08:53)
[2019-02-11] MEDS: ASPIRIN EC 81 MG TABLET PO SCH (08:53)
[2019-02-11] MEDS: MEROPENEM 1,000 MG in SODIUM CHLORIDE 0.9% 100 ML IV SCH ×2 (08:55→21:06)
[2019-02-11] MEDS: DORNASE ALFA 2.5 MG/2.5 ML VIAL RESP TX SCH ×2 (10:50→19:15)
[2019-02-11] MEDS: THEOPHYLLINE ER (24 HR) 200 MG CAPSULE PO SCH (10:53)
[2019-02-11] MEDS: methylPREDNISolone SOD SUC 40 MG/1 ML VIAL IV SCH ×2 (12:12→23:21)
[2019-02-11] MEDS: traZODone 50 MG TABLET PO SCH (21:02)
[2019-02-11] MEDS: LEVOFLOXACIN 500 MG TABLET PO SCH (21:02)
[2019-02-11] MEDS: ROSUVASTATIN 20 MG TABLET PO SCH (21:03)
[2019-02-11] MEDS: ZALEPLON 5 MG CAPSULE PO PRN (21:03)
[2019-02-11] MEDS: ENOXAPARIN 40 MG/0.4 ML SYRINGE SUBCUT SCH (21:03)
[2019-02-12] MEDS: ALBUTEROL/IPRATROPIUM 3 ML NEB RESP TX SCH ×4 (02:25→14:13)
[2019-02-12 04:54] LABS: Basophils % 0.1 % (0.0-0.8); Hematocrit 34.7 VOL% (35.7-47.0); Hemoglobin 11.8 GM/DL (12.0-16.0); Immature Granulocytes % 0.7 %; Immature Granulocytes Absolute 0.06 #; Lymphocytes # 0.9 10*3/uL (1.4-4.0); Lymphocytes % 10.1 % (21.3-54.2); Mean Corpuscular Volume 92.3 FL (87-102); Mean Platelet Volume 10.3 FL (9.6-12.0); Monocytes % 3.9 % (1.7-12.7); Neutrophils % 85.2 % (38.7-73.9); Platelet Count 128 T/CUMM (130-400); Red Blood Count 3.76 MC/CUMM (3.8-5.5); Red Cell Distribution Width 13.3 % (9.3-17.3); White Blood Count 8.5 T/CUMM (4-12)
[2019-02-12 05:15] LABS: Calcium 8.4 MG/DL (8.5-10.1); Osmolality,Calculated 277.8 MOS/KG (273-304)
[2019-02-12 05:17] LABS: Calcium 8.5 MG/DL (8.5-10.1); Osmolality,Calculated 277.8 MOS/KG (273-304)
[2019-02-12 05:42] LABS: Anisocytosis Slight; Platelet Estimate Decreased
[2019-02-12] MEDS: DORNASE ALFA 2.5 MG/2.5 ML VIAL RESP TX SCH (07:59)
[2019-02-12] MEDS: AMINOPHYLLINE 500 MG in SODIUM CHLORIDE 0.9% 480 ML IV SCH (08:33)
[2019-02-12] MEDS: CHOLECALCIFEROL 1,000 UNIT TABLET PO SCH (08:34)
[2019-02-12] MEDS: MONTELUKAST 10 MG TABLET PO SCH (08:34)
[2019-02-12] MEDS: MULTIVITAMIN (CENTRUM) TABLET PO SCH (08:34)
[2019-02-12] MEDS: FUROSEMIDE 20 MG TABLET PO SCH (08:34)
[2019-02-12] MEDS: ASCORBIC ACID 500 MG TABLET PO SCH (08:35)
[2019-02-12] MEDS: PANTOPRAZOLE 40 MG TABLET PO SCH (08:35)
[2019-02-12] MEDS: MAGNESIUM OXIDE 400 MG TABLET PO SCH (08:35)
[2019-02-12] MEDS: CARVEDILOL 25 MG TABLET PO SCH (08:35)
[2019-02-12] MEDS: ASPIRIN EC 81 MG TABLET PO SCH (08:35)
[2019-02-12] MEDS: LOSARTAN 50 MG TABLET PO SCH (08:35)
[2019-02-12] MEDS: MEROPENEM 1,000 MG in SODIUM CHLORIDE 0.9% 100 ML IV SCH (08:37)
[2019-02-12] MEDS: THEOPHYLLINE ER (24 HR) 200 MG CAPSULE PO SCH (09:15)
[2019-02-12] MEDS: methylPREDNISolone SOD SUC 40 MG/1 ML VIAL IV SCH (11:59)
[2019-02-12] MEDS ORDERED: amLODIPine 5 MG TABLET PO SCH (13:00)
[2019-02-12 15:59] VITALS: BP 161/72
== END 2019-02-12 16:20 | disposition home or self-care (01) | DRG 291 ==
LOC: N.ED 16:35 → N.EDINP 18:58 → SUATTDRO 18:58 → N.TELES 20:17 → UNDODISIN 21:30
PROVIDERS: ADMIT Internal Medicine; ATTEND Hospitalist

== ENCOUNTER 2019-09-01 06:35 | Inpatient (IN) ==
[2019-09-01 07:28] LABS: Basophils % 0.2 % (0.0-0.8); Eosinophils % 0.5 % (0.00-10.9); Hematocrit 37.9 VOL% (35.7-47.0); Immature Granulocytes % 0.4 %; Immature Granulocytes Absolute 0.02 #; Lymphocytes # 0.5 10*3/uL (1.4-4.0); Lymphocytes % 8.6 % (21.3-54.2); Mean Corpuscular HGB Conc 34.3 GM/DL (32-36); Mean Corpuscular Volume 93.6 FL (87-102); Mean Platelet Volume 9.9 FL (9.6-12.0); Monocytes % 5.9 % (1.7-12.7); Neutrophils % 84.4 % (38.7-73.9); Red Blood Count 4.05 MC/CUMM (3.8-5.5); Red Cell Distribution Width 13.3 % (9.3-17.3); White Blood Count 5.6 T/CUMM (4-12)
[2019-09-01 07:31] LABS: Platelet Count 95 T/CUMM (130-400)
[2019-09-01 07:43] LABS: Apearance,Urine CLEAR (Clear); Bilirubin,Urine Negative (Negative); Blood, Urine Negative (Negative); Glucose,Urine (UA) Negative (Negative); Hyaline Casts,Urine 1 /LPF (0-3); Ketones,Urine 20 mg/dL (Negative); Mucus,Urine Occasional /LPF (Occasional); Nitrite,Urine Negative (Negative); Protein,Urine >=500 MG/DL; RBC,Urine 9 /HPF (0-4); Urine Color Yellow (Yellow); Urine Urobilinogen < 2.0 EU/DL (0.2-1.0); WBC,Urine <1 /HPF (0-6)
[2019-09-01 07:44] LABS: Hypochromasia 1+; Platelet Estimate Decreased
[2019-09-01 07:48] LABS: Albumin 3.6 G/DL (3.4-5.0); Bilirubin,Total 1.5 MG/DL (0.2-1.0); Calcium 8.4 MG/DL (8.5-10.1)
[2019-09-01] MEDS ORDERED: hydrALAZINE 20 MG/1 ML VIAL ONE (08:15)
[2019-09-01] MEDS ORDERED: hydrALAZINE 20 MG/1 ML VIAL IV STA ×2 (08:15→09:38)
[2019-09-01] MEDS ORDERED: ONDANSETRON 4 MG/2 ML VIAL IV STA (08:44)
[2019-09-01] MEDS ORDERED: fentaNYL 100 MCG/2 ML VIAL IV STA (08:44)
[2019-09-01] MEDS ORDERED: AZITHROMYCIN INJ 500 MG in SODIUM CHLORIDE 0.9% 250 ML IV STA (09:03)
[2019-09-01] MEDS ORDERED: methylPREDNISolone SOD SUC 125 MG/2 ML VIAL IV STA (09:05)
[2019-09-01] MEDS ORDERED: FUROSEMIDE 20 MG TABLET PO PRN (10:54)
[2019-09-01] MEDS ORDERED: ONDANSETRON 4 MG/2 ML VIAL IV PRN (10:55)
[2019-09-01] MEDS ORDERED: BISACODYL 5 MG TABLET PO PRN (10:55)
[2019-09-01] MEDS ORDERED: ALBUTEROL 2.5 MG/3 ML NEB RESP TX PRN (10:55)
[2019-09-01] MEDS ORDERED: FUROSEMIDE 20 MG/2 ML VIAL IV ONE (10:59)
[2019-09-01] MEDS ORDERED: MAGNESIUM SULF RIDER 4 GM in PREMIX 1 EACH IV PRN ×2 (11:02→20:11)
[2019-09-01] MEDS ORDERED: MAGNESIUM SULF RIDER 2 GM in PREMIX 1 EACH IV PRN ×2 (11:02→20:11)
[2019-09-01] MEDS ORDERED: POTASSIUM CHLORIDE 20 MEQ TABLET PO STA (11:02)
[2019-09-01] MEDS ORDERED: cefTRIAXone 1,000 MG in SYRINGE 1 EACH IV SCH (12:30)
[2019-09-01] MEDS ORDERED: INFLUENZA VIRUS VACCINE 0.5 ML SYRINGE IM ONE (14:43)
[2019-09-01] MEDS: ENOXAPARIN 40 MG/0.4 ML SYRINGE SUBCUT SCH (15:09)
[2019-09-01] MEDS: HydrOXYzine PAMOATE 25 MG CAPSULE PO PRN (15:43)
[2019-09-01] MEDS ORDERED: POTASSIUM CHLORIDE 20 MEQ/15 ML UDCUP PER TUBE PRN (20:10)
[2019-09-01] MEDS ORDERED: traZODone 50 MG TABLET PO SCH (21:00)
[2019-09-01] MEDS: ROSUVASTATIN 20 MG TABLET PO SCH (21:54)
[2019-09-01] MEDS: carvediloL 25 MG TABLET PO SCH (21:54)
[2019-09-01] MEDS: POTASSIUM CHLORIDE 20 MEQ TABLET PO PRN (21:54)
[2019-09-02] MEDS: POTASSIUM CHLORIDE 20 MEQ TABLET PO PRN ×3 (00:22→05:05)
[2019-09-02] MEDS: guaiFENesin/DM ER 600-30 MG TABLET PO PRN (00:22)
[2019-09-02] MEDS: hydrALAZINE 20 MG/1 ML VIAL IV PRN ×3 (06:01→23:58)
[2019-09-02 06:06] LABS: Basophils % 0.2 % (0.0-0.8); Hematocrit 39.9 VOL% (35.7-47.0); Hemoglobin 13.1 GM/DL (12.0-16.0); Immature Granulocytes % 0.2 %; Immature Granulocytes Absolute 0.02 #; Lymphocytes % 9.7 % (21.3-54.2); Mean Corpuscular HGB Conc 32.8 GM/DL (32-36); Mean Corpuscular Volume 95.7 FL (87-102); Mean Platelet Volume 9.6 FL (9.6-12.0); Monocytes % 7.8 % (1.7-12.7); Neutrophils % 82.1 % (38.7-73.9); Platelet Count 104 T/CUMM (130-400); Red Blood Count 4.17 MC/CUMM (3.8-5.5); Red Cell Distribution Width 13.4 % (9.3-17.3); White Blood Count 9.9 T/CUMM (4-12)
[2019-09-02 06:18] LABS: Calcium 8.4 MG/DL (8.5-10.1)
[2019-09-02 06:29] LABS: Band Neutrophils 1 % (0-10); Lymphocytes 7 % (20-55); Platelet Estimate Decreased; Segmented Neutrophils 88 % (50-85); Total Cells Counted 100
[2019-09-02 06:30] LABS: Hypochromasia 1+
[2019-09-02 07:28] LABS: Hepatitis B Core IgM Quant < 0.05 Index; Hepatitis B Surface Ag Quant < 0.10 Index; Hepatitis B Surface Ag Result Negative (Negative); Hepatitis C Virus Ab Quant 0.21 Index; Hepatitis C Virus Ab Result Negative (Negative)
[2019-09-02] MEDS: HydrOXYzine PAMOATE 25 MG CAPSULE PO PRN (07:39)
[2019-09-02] MEDS: carvediloL 25 MG TABLET PO SCH ×2 (07:39→16:18)
[2019-09-02] MEDS ORDERED: ALPRAZolam 0.25 MG TABLET PO PRN (07:58)
[2019-09-02] MEDS ORDERED: FUROSEMIDE 40 MG/4 ML VIAL IV ONE (08:01)
[2019-09-02] MEDS ORDERED: ALBUTEROL 2.5 MG/3 ML NEB RESP TX ONE (08:13)
[2019-09-02] MEDS ORDERED: MORPHINE 4 MG/1 ML VIAL IV ONE (08:14)
[2019-09-02] MEDS ORDERED: MORPHINE 4 MG/1 ML VIAL ONE (08:14)
[2019-09-02] MEDS ORDERED: LORazepam 2 MG/1 ML VIAL IV ONE (08:15)
[2019-09-02] MEDS ORDERED: methylPREDNISolone SOD SUC 40 MG/1 ML VIAL ONE (08:16)
[2019-09-02] MEDS ORDERED: methylPREDNISolone SOD SUC 40 MG/1 ML VIAL IV ONE (08:16)
[2019-09-02] MEDS ORDERED: hydrALAZINE 20 MG/1 ML VIAL IV ONE (08:19)
[2019-09-02 08:24] LABS: ABG Base Excess 2.3 MMOL/L (-2.5-2.5); ABG HCO3 26.5 MMOL/L (20-26); ABG Oxygen Saturation 99.5 % (95-100); ABG PCO2 56.1 MM HG (35-48); ABG PH 7.331 (7.35-7.45); ABG TCO2 26.3 MMOL/L (23-27)
[2019-09-02] MEDS ORDERED: LORazepam 2 MG/1 ML VIAL IV PRN (08:27)
[2019-09-02] MEDS ORDERED: PIPERACILLIN/TAZOBACTAM 3,375 MG in SODIUM CHLORIDE 0.9% 100 ML IV SCH (08:30)
[2019-09-02] MEDS ORDERED: AZITHROMYCIN INJ 500 MG in SODIUM CHLORIDE 0.9% 250 ML IV SCH (09:00)
[2019-09-02] MEDS: ASPIRIN EC 81 MG TABLET PO SCH (09:03)
[2019-09-02] MEDS: MULTIVITAMIN (CENTRUM) TABLET PO SCH (09:04)
[2019-09-02] MEDS: CHOLECALCIFEROL 1,000 UNIT TABLET PO SCH (09:04)
[2019-09-02] MEDS: ASCORBIC ACID 500 MG TABLET PO SCH (09:04)
[2019-09-02] MEDS: MAGNESIUM OXIDE 400 MG TABLET PO SCH (09:04)
[2019-09-02] MEDS: PANTOPRAZOLE 40 MG TABLET PO SCH (09:04)
[2019-09-02 09:15] LABS: Calcium 8.4 MG/DL (8.5-10.1); Osmolality,Calculated 280.1 MOS/KG (273-304)
[2019-09-02 09:20] LABS: Troponin I 0.052 NG/ML (0.00-0.045)
[2019-09-02] MEDS ORDERED: MORPHINE 4 MG/1 ML VIAL IV PRN (09:35)
[2019-09-02] MEDS: ALBUTEROL/IPRATROPIUM 3 ML NEB RESP TX SCH ×4 (09:50→20:11)
[2019-09-02] MEDS: CEFEPIME 1,000 MG in SODIUM CHLORIDE 0.9% 100 ML IV SCH ×3 (10:04→21:11)
[2019-09-02 12:36] LABS: Troponin I 0.058 NG/ML (0.00-0.045)
[2019-09-02] MEDS ORDERED: ALBUTEROL 2.5 MG/3 ML NEB RESP TX SCH (13:00)
[2019-09-02] MEDS ORDERED: ALBUTEROL 2.5 MG/3 ML NEB RESP TX PRN (13:01)
[2019-09-02 13:42] LABS: ABG Base Excess 4.4 MMOL/L (-2.5-2.5); ABG HCO3 28.4 MMOL/L (20-26); ABG Oxygen Saturation 99.1 % (95-100); ABG PH 7.353 (7.35-7.45); ABG TCO2 27.9 MMOL/L (23-27)
[2019-09-02 13:43] LABS: Allen Test Positive
[2019-09-02] MEDS: ENOXAPARIN 40 MG/0.4 ML SYRINGE SUBCUT SCH (15:00)
[2019-09-02] MEDS ORDERED: FUROSEMIDE 40 MG/4 ML VIAL IV SCH (16:00)
[2019-09-02] MEDS: methylPREDNISolone SOD SUC 40 MG/1 ML VIAL IV SCH (16:25)
[2019-09-02] MEDS: ROSUVASTATIN 20 MG TABLET PO SCH (21:11)
[2019-09-03] MEDS: ALBUTEROL/IPRATROPIUM 3 ML NEB RESP TX SCH ×4 (00:42→19:46)
[2019-09-03] MEDS: methylPREDNISolone SOD SUC 40 MG/1 ML VIAL IV SCH ×3 (01:20→17:18)
[2019-09-03] MEDS: CEFEPIME 1,000 MG in SODIUM CHLORIDE 0.9% 100 ML IV SCH ×2 (03:30→09:10)
[2019-09-03 05:03] LABS: Basophils % 0.1 % (0.0-0.8); Hematocrit 37.6 VOL% (35.7-47.0); Hemoglobin 12.4 GM/DL (12.0-16.0); Immature Granulocytes % 0.2 %; Immature Granulocytes Absolute 0.02 #; Lymphocytes # 1.1 10*3/uL (1.4-4.0); Lymphocytes % 13.1 % (21.3-54.2); Mean Corpuscular Volume 95.4 FL (87-102); Mean Platelet Volume 10.3 FL (9.6-12.0); Monocytes % 3.6 % (1.7-12.7); Platelet Count 108 T/CUMM (130-400); Red Blood Count 3.94 MC/CUMM (3.8-5.5); Red Cell Distribution Width 13.2 % (9.3-17.3); White Blood Count 8.1 T/CUMM (4-12)
[2019-09-03] MEDS: hydrALAZINE 20 MG/1 ML VIAL IV PRN (05:04)
[2019-09-03 05:21] LABS: Calcium 8.4 MG/DL (8.5-10.1)
[2019-09-03 05:33] LABS: Lymphocytes 7 % (20-55); Platelet Estimate Decreased; Polychromasia Few; Segmented Neutrophils 91 % (50-85); Total Cells Counted 100
[2019-09-03] MEDS: CHOLECALCIFEROL 1,000 UNIT TABLET PO SCH (09:00)
[2019-09-03] MEDS ORDERED: AZITHROMYCIN 250 MG TABLET PO SCH (09:00)
[2019-09-03] MEDS: carvediloL 25 MG TABLET PO SCH ×2 (09:01→17:18)
[2019-09-03] MEDS: ASPIRIN EC 81 MG TABLET PO SCH (09:01)
[2019-09-03] MEDS: MAGNESIUM OXIDE 400 MG TABLET PO SCH (09:01)
[2019-09-03] MEDS: MULTIVITAMIN (CENTRUM) TABLET PO SCH (09:01)
[2019-09-03] MEDS: FUROSEMIDE 20 MG TABLET PO SCH (09:01)
[2019-09-03] MEDS: PANTOPRAZOLE 40 MG TABLET PO SCH (09:02)
[2019-09-03] MEDS: ASCORBIC ACID 500 MG TABLET PO SCH (09:02)
[2019-09-03] MEDS ORDERED: MAGNESIUM SULF RIDER 4 GM in PREMIX 1 EACH IV ONE (10:00)
[2019-09-03] MEDS: AZITHROMYCIN 250 MG TABLET PO SCH (10:27)
[2019-09-03] MEDS: amLODIPine 10 MG TABLET PO SCH (10:27)
[2019-09-03] MEDS: cefTRIAXone 1,000 MG in SYRINGE 1 EACH IV SCH (10:28)
[2019-09-03] MEDS: ENOXAPARIN 40 MG/0.4 ML SYRINGE SUBCUT SCH (13:22)
[2019-09-03 16:18] LABS: Troponin I 0.035 NG/ML (0.00-0.045)
[2019-09-03] MEDS: ROSUVASTATIN 20 MG TABLET PO SCH (21:49)
[2019-09-03] MEDS ORDERED: METOPROLOL TARTRATE 5 MG/5 ML VIAL IV ONE ×2 (22:34→22:36)
[2019-09-03] MEDS: dilTIAZem Drip 125 MG/125 ML PREMIX IV SCH (22:55)
[2019-09-04] MEDS ORDERED: AMIODARONE INJ 150 MG in DEXTROSE 5% 100 ML IV ONE ×2 (00:12→07:59)
[2019-09-04] MEDS ORDERED: LEVALBUTEROL 1.25 MG/3 ML NEB RESP TX PRN (00:25)
[2019-09-04] MEDS ORDERED: AMIODARONE 450 MG/9 ML VIAL IV ONE (00:29)
[2019-09-04] MEDS ORDERED: AMIODARONE 150 MG/3 ML VIAL ONE (00:29)
[2019-09-04] MEDS ORDERED: AMIODARONE INJ 450 MG in DEXTROSE 5% 241 ML IV SCH ×3 (00:30→14:00)
[2019-09-04] MEDS: LEVALBUTEROL 1.25 MG/3 ML NEB RESP TX SCH ×4 (00:48→20:39)
[2019-09-04] MEDS: methylPREDNISolone SOD SUC 40 MG/1 ML VIAL IV SCH ×3 (02:56→17:21)
[2019-09-04] MEDS: METOPROLOL TARTRATE 5 MG/5 ML VIAL IV PRN ×3 (04:07→04:30)
[2019-09-04] MEDS: dilTIAZem Drip 125 MG/125 ML PREMIX IV SCH (09:05)
[2019-09-04] MEDS: CHOLECALCIFEROL 1,000 UNIT TABLET PO SCH (09:34)
[2019-09-04] MEDS: ASCORBIC ACID 500 MG TABLET PO SCH (09:34)
[2019-09-04] MEDS: ASPIRIN EC 81 MG TABLET PO SCH (09:34)
[2019-09-04] MEDS: carvediloL 25 MG TABLET PO SCH ×2 (09:34→17:19)
[2019-09-04] MEDS: amLODIPine 10 MG TABLET PO SCH (09:34)
[2019-09-04] MEDS: AZITHROMYCIN 250 MG TABLET PO SCH (09:34)
[2019-09-04] MEDS: MAGNESIUM OXIDE 400 MG TABLET PO SCH (09:34)
[2019-09-04] MEDS: PANTOPRAZOLE 40 MG TABLET PO SCH (09:35)
[2019-09-04] MEDS: MULTIVITAMIN (CENTRUM) TABLET PO SCH (09:35)
[2019-09-04] MEDS: FUROSEMIDE 20 MG TABLET PO SCH (09:35)
[2019-09-04] MEDS: cefTRIAXone 1,000 MG in SYRINGE 1 EACH IV SCH (09:38)
[2019-09-04] MEDS: ENOXAPARIN 60 MG/0.6 ML SYRINGE SUBCUT SCH ×2 (09:41→22:07)
[2019-09-04] MEDS ORDERED: MIDAZOLAM 2 MG/2 ML VIAL IV ONE (10:36)
[2019-09-04] MEDS ORDERED: HYDROmorphone 2 MG/1 ML VIAL IV ONE (10:36)
[2019-09-04] MEDS: SODIUM CHLORIDE 0.9% 1,000 ML IV SCH ×3 (10:47→14:30)
[2019-09-04] MEDS ORDERED: ATROPINE 1 MG/10 ML SYRINGE IV ONE (10:59)
[2019-09-04] MEDS ORDERED: ATROPINE 1 MG/10 ML SYRINGE ONE (10:59)
[2019-09-04] MEDS ORDERED: PHENYLEPHRINE DRIP 40 MG/250 ML PREMIX IV PRN (12:02)
[2019-09-04] MEDS: AMIODARONE 200 MG TABLET PO SCH (15:53)
[2019-09-04] MEDS: ROSUVASTATIN 20 MG TABLET PO SCH (22:07)
[2019-09-05] MEDS: LEVALBUTEROL 1.25 MG/3 ML NEB RESP TX SCH ×4 (00:25→19:47)
[2019-09-05] MEDS: methylPREDNISolone SOD SUC 40 MG/1 ML VIAL IV SCH ×3 (02:25→17:58)
[2019-09-05 04:46] LABS: Hematocrit 36.5 VOL% (35.7-47.0); Hemoglobin 12.5 GM/DL (12.0-16.0); Immature Granulocytes % 0.6 %; Immature Granulocytes Absolute 0.03 #; Lymphocytes # 0.6 10*3/uL (1.4-4.0); Mean Corpuscular HGB Conc 34.2 GM/DL (32-36); Mean Corpuscular Volume 91.7 FL (87-102); Mean Platelet Volume 11.2 FL (9.6-12.0); Monocytes % 4.8 % (1.7-12.7); Neutrophils % 82.6 % (38.7-73.9); Platelet Count 99 T/CUMM (130-400); Red Blood Count 3.98 MC/CUMM (3.8-5.5); Red Cell Distribution Width 12.8 % (9.3-17.3); White Blood Count 5.3 T/CUMM (4-12)
[2019-09-05 05:13] LABS: Osmolality,Calculated 279.2 MOS/KG (273-304)
[2019-09-05] MEDS: cefTRIAXone 1,000 MG in SYRINGE 1 EACH IV SCH (09:16)
[2019-09-05] MEDS: AMIODARONE 200 MG TABLET PO SCH (09:18)
[2019-09-05] MEDS: PANTOPRAZOLE 40 MG TABLET PO SCH (09:18)
[2019-09-05] MEDS: ENOXAPARIN 60 MG/0.6 ML SYRINGE SUBCUT SCH ×2 (09:18→22:03)
[2019-09-05] MEDS: CHOLECALCIFEROL 1,000 UNIT TABLET PO SCH (09:19)
[2019-09-05] MEDS: FUROSEMIDE 20 MG TABLET PO SCH (09:19)
[2019-09-05] MEDS: carvediloL 25 MG TABLET PO SCH ×2 (09:20→17:58)
[2019-09-05] MEDS: amLODIPine 10 MG TABLET PO SCH (09:20)
[2019-09-05] MEDS: MULTIVITAMIN (CENTRUM) TABLET PO SCH (09:20)
[2019-09-05] MEDS: MAGNESIUM OXIDE 400 MG TABLET PO SCH (09:20)
[2019-09-05] MEDS: AZITHROMYCIN 250 MG TABLET PO SCH (09:20)
[2019-09-05] MEDS: ASPIRIN EC 81 MG TABLET PO SCH (09:20)
[2019-09-05] MEDS: ASCORBIC ACID 500 MG TABLET PO SCH (09:20)
[2019-09-05] MEDS: guaiFENesin/DM ER 600-30 MG TABLET PO PRN (09:21)
[2019-09-05] MEDS: ROSUVASTATIN 20 MG TABLET PO SCH (22:03)
[2019-09-06] MEDS: LEVALBUTEROL 1.25 MG/3 ML NEB RESP TX SCH ×4 (00:30→19:39)
[2019-09-06] MEDS: methylPREDNISolone SOD SUC 40 MG/1 ML VIAL IV SCH (00:39)
[2019-09-06 05:17] LABS: Hematocrit 37.7 VOL% (35.7-47.0); Hemoglobin 13.1 GM/DL (12.0-16.0); Immature Granulocytes % 0.6 %; Immature Granulocytes Absolute 0.03 #; Lymphocytes # 0.5 10*3/uL (1.4-4.0); Lymphocytes % 9.7 % (21.3-54.2); Mean Corpuscular HGB Conc 34.7 GM/DL (32-36); Mean Corpuscular Volume 89.3 FL (87-102); Mean Platelet Volume 10.6 FL (9.6-12.0); Monocytes % 4.7 % (1.7-12.7); Platelet Count 118 T/CUMM (130-400); Red Blood Count 4.22 MC/CUMM (3.8-5.5); Red Cell Distribution Width 12.7 % (9.3-17.3); White Blood Count 5.1 T/CUMM (4-12)
[2019-09-06 05:31] LABS: Osmolality,Calculated 290.8 MOS/KG (273-304)
[2019-09-06] MEDS ORDERED: LEVALBUTEROL 1.25 MG/3 ML NEB RESP TX PRN (08:58)
[2019-09-06] MEDS: FUROSEMIDE 20 MG TABLET PO SCH (09:42)
[2019-09-06] MEDS: amLODIPine 10 MG TABLET PO SCH (09:42)
[2019-09-06] MEDS: guaiFENesin/DM ER 600-30 MG TABLET PO PRN (09:42)
[2019-09-06] MEDS: AMIODARONE 200 MG TABLET PO SCH ×2 (09:42→20:52)
[2019-09-06] MEDS: AZITHROMYCIN 250 MG TABLET PO SCH (09:42)
[2019-09-06] MEDS: CHOLECALCIFEROL 1,000 UNIT TABLET PO SCH (09:42)
[2019-09-06] MEDS: PANTOPRAZOLE 40 MG TABLET PO SCH (09:43)
[2019-09-06] MEDS: carvediloL 25 MG TABLET PO SCH ×2 (09:43→19:22)
[2019-09-06] MEDS: MULTIVITAMIN (CENTRUM) TABLET PO SCH (09:43)
[2019-09-06] MEDS: ASCORBIC ACID 500 MG TABLET PO SCH (09:43)
[2019-09-06] MEDS: ASPIRIN EC 81 MG TABLET PO SCH (09:43)
[2019-09-06] MEDS: cefTRIAXone 1,000 MG in SYRINGE 1 EACH IV SCH (09:44)
[2019-09-06] MEDS: ENOXAPARIN 60 MG/0.6 ML SYRINGE SUBCUT SCH ×2 (09:45→20:53)
[2019-09-06] MEDS ORDERED: AMIODARONE INJ 150 MG in DEXTROSE 5% 100 ML IV ONE (12:54)
[2019-09-06] MEDS ORDERED: DILTIAZEM 60 MG TABLET PO SCH (13:00)
[2019-09-06] MEDS: predniSONE 20 MG TABLET PO SCH (14:27)
[2019-09-06] MEDS ORDERED: DILTIAZEM 60 MG TABLET PO ONE (15:00)
[2019-09-06] MEDS: MAGNESIUM OXIDE 400 MG TABLET PO SCH (15:19)
[2019-09-06] MEDS ORDERED: NITROGLYCERIN SL 0.4 MG TABLET SL ONE (16:06)
[2019-09-06] MEDS ORDERED: METOPROLOL TARTRATE 5 MG/5 ML VIAL IV ONE ×2 (17:09→17:38)
[2019-09-06] MEDS ORDERED: ALUM/MAG/SIMETH/LIDO VISC 1:1 30 ML BOTTLE PO ONE (17:09)
[2019-09-06] MEDS ORDERED: SODIUM CHLORIDE 0.9% 250 ML IV ONE (19:03)
[2019-09-06 20:51] LABS: Troponin I 0.212 NG/ML (0.00-0.045)
[2019-09-06] MEDS: ROSUVASTATIN 20 MG TABLET PO SCH (20:52)
[2019-09-06] MEDS: POTASSIUM CHLORIDE 20 MEQ TABLET PO SCH (20:53)
[2019-09-06] MEDS: dilTIAZem Drip 125 MG/125 ML PREMIX IV SCH (22:18)
[2019-09-06] MEDS: POTASSIUM CHLORIDE 20 MEQ TABLET PO PRN (22:53)
[2019-09-07] MEDS ORDERED: dilTIAZem Drip 125 MG/125 ML PREMIX IV ONE (00:22)
[2019-09-07] MEDS: dilTIAZem Drip 125 MG/125 ML PREMIX IV SCH (00:30)
[2019-09-07] MEDS: LEVALBUTEROL 1.25 MG/3 ML NEB RESP TX SCH ×4 (00:42→19:25)
[2019-09-07 01:00] LABS: Troponin I 0.218 NG/ML (0.00-0.045)
[2019-09-07 05:15] LABS: Basophils % 0.1 % (0.0-0.8); Hematocrit 38.9 VOL% (35.7-47.0); Hemoglobin 13.5 GM/DL (12.0-16.0); Immature Granulocytes % 0.6 %; Immature Granulocytes Absolute 0.05 #; Lymphocytes # 0.8 10*3/uL (1.4-4.0); Lymphocytes % 9.8 % (21.3-54.2); Mean Corpuscular HGB Conc 34.7 GM/DL (32-36); Mean Corpuscular Volume 90.9 FL (87-102); Mean Platelet Volume 10.2 FL (9.6-12.0); Monocytes % 10.3 % (1.7-12.7); Neutrophils % 79.2 % (38.7-73.9); Platelet Count 116 T/CUMM (130-400); Red Blood Count 4.28 MC/CUMM (3.8-5.5); Red Cell Distribution Width 12.5 % (9.3-17.3); White Blood Count 8.1 T/CUMM (4-12)
[2019-09-07 05:40] LABS: Calcium 7.8 MG/DL (8.5-10.1); Osmolality,Calculated 285.1 MOS/KG (273-304)
[2019-09-07] MEDS ORDERED: MIDAZOLAM 10 MG/2 ML VIAL ONE (08:15)
[2019-09-07] MEDS ORDERED: fentaNYL 100 MCG/2 ML VIAL ONE (08:19)
[2019-09-07] MEDS ORDERED: MIDAZOLAM 2 MG/2 ML VIAL IV ONE ×2 (08:27→08:35)
[2019-09-07] MEDS: carvediloL 25 MG TABLET PO SCH ×2 (08:54→16:22)
[2019-09-07] MEDS ORDERED: predniSONE 20 MG TABLET PO SCH (09:00)
[2019-09-07] MEDS: ENOXAPARIN 60 MG/0.6 ML SYRINGE SUBCUT SCH ×2 (10:21→20:37)
[2019-09-07] MEDS: ASPIRIN EC 81 MG TABLET PO SCH (10:22)
[2019-09-07] MEDS: predniSONE 20 MG TABLET PO SCH (10:23)
[2019-09-07] MEDS: ASCORBIC ACID 500 MG TABLET PO SCH ×2 (10:23→20:20)
[2019-09-07] MEDS: CHOLECALCIFEROL 1,000 UNIT TABLET PO SCH (10:24)
[2019-09-07] MEDS: AMIODARONE 200 MG TABLET PO SCH ×2 (10:24→20:20)
[2019-09-07] MEDS: MAGNESIUM OXIDE 400 MG TABLET PO SCH (10:24)
[2019-09-07] MEDS: PANTOPRAZOLE 40 MG TABLET PO SCH (10:24)
[2019-09-07] MEDS: FUROSEMIDE 20 MG TABLET PO SCH (10:24)
[2019-09-07] MEDS: MULTIVITAMIN (CENTRUM) TABLET PO SCH (10:25)
[2019-09-07] MEDS: POTASSIUM CHLORIDE 20 MEQ TABLET PO SCH ×2 (10:25→20:20)
[2019-09-07] MEDS: cefTRIAXone 1,000 MG in SYRINGE 1 EACH IV SCH (10:25)
[2019-09-07] MEDS: SODIUM CHLORIDE 0.9% 1,000 ML IV SCH ×2 (10:33→10:34)
[2019-09-07] MEDS: ROSUVASTATIN 20 MG TABLET PO SCH (20:20)
[2019-09-08] MEDS: LEVALBUTEROL 1.25 MG/3 ML NEB RESP TX SCH ×4 (00:59→19:36)
[2019-09-08 05:55] LABS: Basophils % 0.1 % (0.0-0.8); Hematocrit 37.3 VOL% (35.7-47.0); Hemoglobin 12.9 GM/DL (12.0-16.0); Immature Granulocytes % 1.5 %; Immature Granulocytes Absolute 0.12 #; Lymphocytes # 0.9 10*3/uL (1.4-4.0); Lymphocytes % 11.7 % (21.3-54.2); Mean Corpuscular HGB Conc 34.6 GM/DL (32-36); Mean Corpuscular Volume 90.1 FL (87-102); Mean Platelet Volume 10.7 FL (9.6-12.0); Monocytes % 8.7 % (1.7-12.7); Platelet Count 106 T/CUMM (130-400); Red Blood Count 4.14 MC/CUMM (3.8-5.5); Red Cell Distribution Width 12.3 % (9.3-17.3)
[2019-09-08 06:33] LABS: Calcium 7.8 MG/DL (8.5-10.1); Osmolality,Calculated 291.5 MOS/KG (273-304)
[2019-09-08] MEDS: PANTOPRAZOLE 40 MG TABLET PO SCH (09:44)
[2019-09-08] MEDS: FUROSEMIDE 20 MG TABLET PO SCH (09:44)
[2019-09-08] MEDS: POTASSIUM CHLORIDE 20 MEQ TABLET PO SCH ×2 (09:44→21:20)
[2019-09-08] MEDS: AMIODARONE 200 MG TABLET PO SCH ×2 (09:44→21:20)
[2019-09-08] MEDS: CHOLECALCIFEROL 1,000 UNIT TABLET PO SCH (09:45)
[2019-09-08] MEDS: carvediloL 25 MG TABLET PO SCH ×2 (09:45→17:29)
[2019-09-08] MEDS: MAGNESIUM OXIDE 400 MG TABLET PO SCH (09:45)
[2019-09-08] MEDS: predniSONE 20 MG TABLET PO SCH (09:45)
[2019-09-08] MEDS: ASPIRIN EC 81 MG TABLET PO SCH (09:46)
[2019-09-08] MEDS: ASCORBIC ACID 500 MG TABLET PO SCH ×2 (09:46→21:19)
[2019-09-08] MEDS: cefTRIAXone 1,000 MG in SYRINGE 1 EACH IV SCH (09:46)
[2019-09-08] MEDS: MULTIVITAMIN (CENTRUM) TABLET PO SCH (09:46)
[2019-09-08] MEDS: ENOXAPARIN 60 MG/0.6 ML SYRINGE SUBCUT SCH ×2 (09:47→21:23)
[2019-09-08] MEDS: SODIUM CHLORIDE 0.9% 1,000 ML IV SCH (11:38)
[2019-09-08] MEDS ORDERED: LISINOPRIL 5 MG TABLET PO SCH (12:00)
[2019-09-08] MEDS: ROSUVASTATIN 20 MG TABLET PO SCH (21:19)
[2019-09-08] MEDS ORDERED: traZODone 50 MG TABLET PO ONE (23:00)
[2019-09-09] MEDS: LEVALBUTEROL 1.25 MG/3 ML NEB RESP TX SCH ×4 (01:36→20:36)
[2019-09-09] MEDS: hydrALAZINE 20 MG/1 ML VIAL IV PRN (06:42)
[2019-09-09] MEDS: POTASSIUM CHLORIDE 20 MEQ TABLET PO SCH ×2 (08:55→21:42)
[2019-09-09] MEDS: PANTOPRAZOLE 40 MG TABLET PO SCH (08:56)
[2019-09-09] MEDS: AMIODARONE 200 MG TABLET PO SCH ×2 (08:56→21:43)
[2019-09-09] MEDS: CHOLECALCIFEROL 1,000 UNIT TABLET PO SCH (08:56)
[2019-09-09] MEDS: carvediloL 12.5 MG TABLET PO SCH ×2 (08:56→16:09)
[2019-09-09] MEDS: ASPIRIN EC 81 MG TABLET PO SCH (08:56)
[2019-09-09] MEDS: predniSONE 20 MG TABLET PO SCH (08:56)
[2019-09-09] MEDS: FUROSEMIDE 20 MG TABLET PO SCH (08:56)
[2019-09-09] MEDS: MULTIVITAMIN (CENTRUM) TABLET PO SCH (08:57)
[2019-09-09] MEDS: MAGNESIUM OXIDE 400 MG TABLET PO SCH (08:57)
[2019-09-09] MEDS: ASCORBIC ACID 500 MG TABLET PO SCH ×2 (08:57→21:42)
[2019-09-09] MEDS ORDERED: LISINOPRIL 5 MG TABLET PO SCH (09:00)
[2019-09-09] MEDS: cefTRIAXone 1,000 MG in SYRINGE 1 EACH IV SCH (09:02)
[2019-09-09] MEDS ORDERED: LISINOPRIL 2.5 MG TABLET PO ONE (09:38)
[2019-09-09] MEDS: ENOXAPARIN 60 MG/0.6 ML SYRINGE SUBCUT SCH (10:18)
[2019-09-09] MEDS: APIXABAN 2.5 MG TABLET PO SCH ×2 (10:23→21:43)
[2019-09-09] MEDS: LISINOPRIL 10 MG TABLET PO SCH (10:23)
[2019-09-09] MEDS: SODIUM CHLORIDE 0.9% 1,000 ML IV SCH (13:51)
[2019-09-09] MEDS: ACETAMINOPHEN 325 MG TABLET PO PRN (21:41)
[2019-09-09] MEDS: ROSUVASTATIN 20 MG TABLET PO SCH (21:43)
[2019-09-10] MEDS: ACETAMINOPHEN 325 MG TABLET PO PRN (01:39)
[2019-09-10] MEDS: LEVALBUTEROL 1.25 MG/3 ML NEB RESP TX SCH ×4 (02:44→19:07)
[2019-09-10] MEDS: ASPIRIN EC 81 MG TABLET PO SCH (08:16)
[2019-09-10] MEDS: AMIODARONE 200 MG TABLET PO SCH ×2 (08:16→21:09)
[2019-09-10] MEDS: LISINOPRIL 10 MG TABLET PO SCH ×2 (08:16→21:10)
[2019-09-10] MEDS: MAGNESIUM OXIDE 400 MG TABLET PO SCH (08:17)
[2019-09-10] MEDS: POTASSIUM CHLORIDE 20 MEQ TABLET PO SCH ×2 (08:17→21:09)
[2019-09-10] MEDS: PANTOPRAZOLE 40 MG TABLET PO SCH (08:17)
[2019-09-10] MEDS: carvediloL 12.5 MG TABLET PO SCH ×2 (08:17→16:49)
[2019-09-10] MEDS: APIXABAN 2.5 MG TABLET PO SCH ×2 (08:17→21:10)
[2019-09-10] MEDS: CHOLECALCIFEROL 1,000 UNIT TABLET PO SCH (08:17)
[2019-09-10] MEDS: FUROSEMIDE 20 MG TABLET PO SCH (08:17)
[2019-09-10] MEDS: MULTIVITAMIN (CENTRUM) TABLET PO SCH (08:18)
[2019-09-10] MEDS: ASCORBIC ACID 500 MG TABLET PO SCH ×2 (08:18→21:09)
[2019-09-10] MEDS: predniSONE 20 MG TABLET PO SCH (08:18)
[2019-09-10] MEDS: cefTRIAXone 1,000 MG in SYRINGE 1 EACH IV SCH (09:29)
[2019-09-10] MEDS ORDERED: IBUPROFEN 400 MG TABLET PO PRN (14:46)
[2019-09-10] MEDS ORDERED: IBUPROFEN 200 MG TABLET ONE (14:51)
[2019-09-10] MEDS: hydrALAZINE 20 MG/1 ML VIAL IV PRN (16:50)
[2019-09-10] MEDS ORDERED: amLODIPine 10 MG TABLET PO SCH ×2 (21:00)
[2019-09-10] MEDS: ROSUVASTATIN 20 MG TABLET PO SCH (21:10)
[2019-09-11] MEDS: LEVALBUTEROL 1.25 MG/3 ML NEB RESP TX SCH ×3 (00:33→13:30)
[2019-09-11] MEDS: carvediloL 12.5 MG TABLET PO SCH (09:15)
[2019-09-11] MEDS: ASPIRIN EC 81 MG TABLET PO SCH (09:16)
[2019-09-11] MEDS: AMIODARONE 200 MG TABLET PO SCH (09:16)
[2019-09-11] MEDS: MULTIVITAMIN (CENTRUM) TABLET PO SCH (09:16)
[2019-09-11] MEDS: LISINOPRIL 10 MG TABLET PO SCH (09:17)
[2019-09-11] MEDS: POTASSIUM CHLORIDE 20 MEQ TABLET PO SCH (09:17)
[2019-09-11] MEDS: FUROSEMIDE 20 MG TABLET PO SCH (09:17)
[2019-09-11] MEDS: MAGNESIUM OXIDE 400 MG TABLET PO SCH (09:17)
[2019-09-11] MEDS: APIXABAN 2.5 MG TABLET PO SCH (09:17)
[2019-09-11] MEDS: PANTOPRAZOLE 40 MG TABLET PO SCH (09:18)
[2019-09-11] MEDS: ASCORBIC ACID 500 MG TABLET PO SCH (09:18)
[2019-09-11] MEDS: CHOLECALCIFEROL 1,000 UNIT TABLET PO SCH (09:18)
[2019-09-11 14:27] VITALS: BP 108/66
== END 2019-09-11 15:02 | disposition swing bed (61) | DRG 871 ==
LOC: N.ED 06:35 → SUATTDRO 10:55 → N.EDINP 10:55 → N.2E 14:10 → N.CC 09-02 08:43 → N.TELES 09-04 19:38
PROVIDERS: ADMIT Internal Medicine; ATTEND Hospitalist

== ENCOUNTER 2020-08-07 17:34 | Inpatient (IN) ==
[2020-08-07] MEDS ORDERED: ONDANSETRON 4 MG/2 ML VIAL IV STA (19:02)
[2020-08-07] MEDS ORDERED: ALBUTEROL/IPRATROPIUM 3 ML NEB RESP TX STA (19:02)
[2020-08-07] MEDS ORDERED: FUROSEMIDE 100 MG/10 ML VIAL IV STA (19:02)
[2020-08-07 19:12] LABS: Basophils # 0.1 10*3/uL (0.0-0.2); Basophils % 0.5 % (0.0-0.8); Eosinophils # 0.3 10*3/uL (0.0-0.87); Eosinophils % 2.1 % (0.00-10.9); Hematocrit 40.6 VOL% (35.7-47.0); Hemoglobin 13.7 GM/DL (12.0-16.0); Immature Granulocytes % 0.5 %; Immature Granulocytes Absolute 0.06 #; Lymphocytes # 0.8 10*3/uL (1.4-4.0); Lymphocytes % 5.9 % (21.3-54.2); Mean Corpuscular HGB Conc 33.7 GM/DL (32-36); Mean Corpuscular Volume 95.5 FL (87-102); Mean Platelet Volume 10.1 FL (9.6-12.0); Platelet Count 145 T/CUMM (130-400); Red Blood Count 4.25 MC/CUMM (3.8-5.5); Red Cell Distribution Width 13.9 % (9.3-17.3); White Blood Count 12.8 T/CUMM (4-12)
[2020-08-07 19:27] LABS: INR 1.3; PT Patient Result 14.2 SECS (9.8-11.9)
[2020-08-07 19:30] LABS: Albumin 2.6 G/DL (3.4-5.0); Bilirubin,Total 1.2 MG/DL (0.2-1.0); Calcium 9.2 MG/DL (8.5-10.1); Osmolality,Calculated 286.7 MOS/KG (273-304); Total Protein 5.8 G/DL (6.4-8.3)
[2020-08-07 19:42] LABS: Bilirubin,Urine Negative (Negative); Blood, Urine Negative (Negative); Calcium Oxalate Crystals,Urine Moderate /HPF (Few); Glucose,Urine (UA) Negative (Negative); Hyaline Casts,Urine 30 /LPF (0-3); Ketones,Urine Negative (Negative); Mucus,Urine Occasional /LPF (Occasional); Nitrite,Urine Negative (Negative); Protein,Urine Negative; RBC,Urine 2 /HPF (0-4); Squamous Epithelial Cell,Urine Occasional /HPF (0-10); Urine Appearance Slightly Hazy (Clear); Urine Color Yellow (Yellow); Urine Specific Gravity 1.023 (1.001-1.035); WBC,Urine 13 /HPF (0-6)
[2020-08-07] MEDS ORDERED: LEVOFLOXACIN INJ 500 MG in PREMIX 1 EACH IV STA (20:06)
[2020-08-07] MEDS ORDERED: DEXTROSE 50% 25 GM/50 ML VIAL IV PRN (21:02)
[2020-08-07] MEDS ORDERED: GLUCAGON 1 MG VIAL IM PRN (21:02)
[2020-08-07] MEDS ORDERED: DEXTROSE 50% 25 GM/50 ML SYRINGE IV PRN (21:13)
[2020-08-07] MEDS ORDERED: carvediloL 3.125 MG TABLET PO ONE (21:30)
[2020-08-07] MEDS: ENOXAPARIN 30 MG/0.3 ML SYRINGE SUBCUT SCH (22:39)
[2020-08-07 23:20] LABS: ABG Base Excess 5.1 MMOL/L (-2.5-2.5); ABG HCO3 28.7 MMOL/L (20-26); ABG Oxygen Saturation 84.9 % (95-100); ABG PCO2 37.9 MM HG (35-48); ABG PH 7.487 (7.35-7.45); ABG PO2 49.2 MM HG (80-95); ABG TCO2 24.5 MMOL/L (23-27)
[2020-08-07] MEDS: ALBUTEROL/IPRATROPIUM 3 ML NEB RESP TX SCH (23:30)
[2020-08-07] MEDS ORDERED: FUROSEMIDE 40 MG/4 ML VIAL IV ONE (23:53)
[2020-08-07] MEDS ORDERED: POTASSIUM CHLORIDE 20 MEQ TABLET PO ONE (23:55)
[2020-08-08 00:01] LABS: Ferritin 566.1 ng/ml (8-252)
[2020-08-08] MEDS: ALBUTEROL/IPRATROPIUM 3 ML NEB RESP TX SCH ×4 (00:10→19:20)
[2020-08-08 02:06] LABS: ABG Base Excess 6.3 MMOL/L (-2.5-2.5); ABG HCO3 28.8 MMOL/L (20-26); ABG Oxygen Saturation 88.9 % (95-100); ABG PCO2 34.6 MM HG (35-48); ABG PH 7.538 (7.35-7.45); ABG PO2 52.6 MM HG (80-95); ABG TCO2 29.9 MMOL/L (23-27); Allen Test Positive; Pt O2 Delivery Device Other
[2020-08-08 04:25] LABS: Basophils % 0.3 % (0.0-0.8); Eosinophils # 0.1 10*3/uL (0.0-0.87); Eosinophils % 0.4 % (0.00-10.9); Hematocrit 41.1 VOL% (35.7-47.0); Hemoglobin 14.1 GM/DL (12.0-16.0); Immature Granulocytes % 0.6 %; Immature Granulocytes Absolute 0.09 #; Lymphocytes # 0.8 10*3/uL (1.4-4.0); Lymphocytes % 5.4 % (21.3-54.2); Mean Corpuscular HGB Conc 34.3 GM/DL (32-36); Mean Platelet Volume 9.7 FL (9.6-12.0); Neutrophils % 87.3 % (38.7-73.9); Platelet Count 135 T/CUMM (130-400); Red Blood Count 4.42 MC/CUMM (3.8-5.5); Red Cell Distribution Width 13.8 % (9.3-17.3); White Blood Count 15.3 T/CUMM (4-12)
[2020-08-08 04:31] LABS: Albumin 2.5 G/DL (3.4-5.0); Bilirubin,Total 1.7 MG/DL (0.2-1.0); Calcium 8.9 MG/DL (8.5-10.1); INR 1.7; Osmolality,Calculated 284.5 MOS/KG (273-304); PT Patient Result 18.1 SECS (9.8-11.9); Partial Thromboplastin Time 38.2 SECS (23.9-33.8); Risk Ratio 7.05; Thyroid Stimulating Hormone 1.35 uIU/ml (0.358-3.74); Total Protein 5.7 G/DL (6.4-8.3); VLDL CHOLESTEROL 16.6 MG/DL
[2020-08-08] MEDS ORDERED: ENOXAPARIN 30 MG/0.3 ML SYRINGE SUBCUT ONE (05:30)
[2020-08-08] MEDS: FUROSEMIDE 40 MG/4 ML VIAL IV SCH ×2 (08:53→16:37)
[2020-08-08] MEDS: MULTIVITAMIN (CENTRUM) TABLET PO SCH (08:56)
[2020-08-08] MEDS: carvediloL 12.5 MG TABLET PO SCH ×2 (08:56→20:45)
[2020-08-08] MEDS: CHOLECALCIFEROL 1,000 UNIT TABLET PO SCH (08:56)
[2020-08-08] MEDS: MAGNESIUM OXIDE 400 MG TABLET PO SCH (08:56)
[2020-08-08] MEDS ORDERED: AMIODARONE 200 MG TABLET PO SCH (09:00)
[2020-08-08] MEDS ORDERED: INFLUENZA VIRUS VACCINE 0.5 ML SYRINGE IM ONE (09:31)
[2020-08-08] MEDS: POTASSIUM CHLORIDE 20 MEQ TABLET PO SCH ×4 (09:40→20:45)
[2020-08-08] MEDS: ENOXAPARIN 30 MG/0.3 ML SYRINGE SUBCUT SCH (20:45)
[2020-08-08] MEDS: LEVOFLOXACIN INJ 250 MG in PREMIX 1 EACH IV SCH (21:21)
[2020-08-09] MEDS: ALBUTEROL/IPRATROPIUM 3 ML NEB RESP TX SCH ×4 (01:37→19:50)
[2020-08-09 05:37] LABS: Basophils # 0.1 10*3/uL (0.0-0.2); Basophils % 0.5 % (0.0-0.8); Eosinophils # 0.2 10*3/uL (0.0-0.87); Eosinophils % 1.8 % (0.00-10.9); Hematocrit 41.7 VOL% (35.7-47.0); Hemoglobin 14.1 GM/DL (12.0-16.0); Immature Granulocytes % 0.5 %; Immature Granulocytes Absolute 0.06 #; Lymphocytes # 0.8 10*3/uL (1.4-4.0); Lymphocytes % 7.1 % (21.3-54.2); Mean Corpuscular HGB Conc 33.8 GM/DL (32-36); Mean Corpuscular Volume 94.8 FL (87-102); Mean Platelet Volume 10.3 FL (9.6-12.0); Neutrophils % 83.1 % (38.7-73.9); Platelet Count 90 T/CUMM (130-400); White Blood Count 11.4 T/CUMM (4-12)
[2020-08-09 05:57] LABS: Hypochromasia Slight; Ovalocytes Slight; Platelet Estimate Decreased
[2020-08-09 06:06] LABS: Albumin 2.2 G/DL (3.4-5.0); Bilirubin,Total 2.6 MG/DL (0.2-1.0); Calcium 9.5 MG/DL (8.5-10.1); Osmolality,Calculated 290.4 MOS/KG (273-304); Total Protein 5.4 G/DL (6.4-8.3)
[2020-08-09] MEDS: FUROSEMIDE 40 MG/4 ML VIAL IV SCH (08:24)
[2020-08-09] MEDS: carvediloL 12.5 MG TABLET PO SCH ×2 (08:37→20:05)
[2020-08-09] MEDS: FUROSEMIDE 40 MG TABLET PO SCH (08:37)
[2020-08-09] MEDS: MAGNESIUM OXIDE 400 MG TABLET PO SCH (08:37)
[2020-08-09] MEDS: CHOLECALCIFEROL 1,000 UNIT TABLET PO SCH (08:37)
[2020-08-09] MEDS: MULTIVITAMIN (CENTRUM) TABLET PO SCH (08:37)
[2020-08-09] MEDS: LEVOFLOXACIN INJ 250 MG in PREMIX 1 EACH IV SCH (20:05)
[2020-08-09] MEDS: APIXABAN 2.5 MG TABLET PO SCH (20:05)
[2020-08-10] MEDS: ALBUTEROL/IPRATROPIUM 3 ML NEB RESP TX SCH ×4 (01:41→19:07)
[2020-08-10] MEDS ORDERED: diphenhydrAMINE CAP 25 MG CAPSULE PO PRN (02:57)
[2020-08-10] MEDS: APIXABAN 2.5 MG TABLET PO SCH ×2 (10:15→20:36)
[2020-08-10] MEDS: CHOLECALCIFEROL 1,000 UNIT TABLET PO SCH (10:16)
[2020-08-10] MEDS: MULTIVITAMIN (CENTRUM) TABLET PO SCH (10:17)
[2020-08-10] MEDS: FUROSEMIDE 40 MG TABLET PO SCH (10:17)
[2020-08-10] MEDS: MAGNESIUM OXIDE 400 MG TABLET PO SCH (10:17)
[2020-08-10] MEDS: carvediloL 12.5 MG TABLET PO SCH ×2 (10:17→20:36)
[2020-08-10] MEDS: LEVOFLOXACIN INJ 250 MG in PREMIX 1 EACH IV SCH (21:54)
[2020-08-11] MEDS: ALBUTEROL/IPRATROPIUM 3 ML NEB RESP TX SCH ×4 (00:58→19:39)
[2020-08-11 04:11] LABS: Basophils % 0.3 % (0.0-0.8); Eosinophils # 0.3 10*3/uL (0.0-0.87); Eosinophils % 2.2 % (0.00-10.9); Hematocrit 40.6 VOL% (35.7-47.0); Hemoglobin 13.7 GM/DL (12.0-16.0); Immature Granulocytes % 0.6 %; Immature Granulocytes Absolute 0.07 #; Lymphocytes # 0.9 10*3/uL (1.4-4.0); Lymphocytes % 7.7 % (21.3-54.2); Mean Corpuscular HGB Conc 33.7 GM/DL (32-36); Mean Corpuscular Volume 94.2 FL (87-102); Mean Platelet Volume 11.4 FL (9.6-12.0); Monocytes % 7.2 % (1.7-12.7); Platelet Count 78 T/CUMM (130-400); Red Blood Count 4.31 MC/CUMM (3.8-5.5); Red Cell Distribution Width 13.8 % (9.3-17.3); White Blood Count 11.9 T/CUMM (4-12)
[2020-08-11 04:36] LABS: Calcium 10.3 MG/DL (8.5-10.1); Osmolality,Calculated 292.7 MOS/KG (273-304)
[2020-08-11 04:37] LABS: Albumin 2.2 G/DL (3.4-5.0); Bilirubin,Direct 0.46 MG/DL (0.0-0.20); Bilirubin,Indirect 0.7 MG/DL (0.0-1.0); Bilirubin,Total 1.2 MG/DL (0.2-1.0); Total Protein 5.3 G/DL (6.4-8.3)
[2020-08-11 04:44] LABS: Platelet Estimate Decreased
[2020-08-11] MEDS: CHOLECALCIFEROL 1,000 UNIT TABLET PO SCH (09:14)
[2020-08-11] MEDS: FUROSEMIDE 40 MG TABLET PO SCH (09:14)
[2020-08-11] MEDS: MULTIVITAMIN (CENTRUM) TABLET PO SCH (09:14)
[2020-08-11] MEDS: carvediloL 12.5 MG TABLET PO SCH ×2 (09:14→21:06)
[2020-08-11] MEDS: APIXABAN 2.5 MG TABLET PO SCH ×2 (09:14→21:05)
[2020-08-11] MEDS: MAGNESIUM OXIDE 400 MG TABLET PO SCH (09:14)
[2020-08-11] MEDS: POTASSIUM CHLORIDE 20 MEQ TABLET PO PRN ×2 (11:11→13:53)
[2020-08-11] MEDS: LEVOFLOXACIN INJ 250 MG in PREMIX 1 EACH IV SCH (21:05)
[2020-08-11] MEDS: POTASSIUM CHLORIDE 20 MEQ TABLET PO SCH (21:06)
[2020-08-12] MEDS: ALBUTEROL/IPRATROPIUM 3 ML NEB RESP TX SCH ×4 (01:05→19:13)
[2020-08-12 06:23] LABS: Calcium 10.5 MG/DL (8.5-10.1); Osmolality,Calculated 295.7 MOS/KG (273-304)
[2020-08-12 06:33] LABS: Basophils % 0.2 % (0.0-0.8); Eosinophils # 0.2 10*3/uL (0.0-0.87); Hematocrit 40.9 VOL% (35.7-47.0); Hemoglobin 13.6 GM/DL (12.0-16.0); Immature Granulocytes % 0.7 %; Immature Granulocytes Absolute 0.08 #; Lymphocytes # 0.8 10*3/uL (1.4-4.0); Mean Corpuscular HGB Conc 33.3 GM/DL (32-36); Mean Corpuscular Volume 95.1 FL (87-102); Mean Platelet Volume 11.8 FL (9.6-12.0); Monocytes % 8.4 % (1.7-12.7); Neutrophils % 81.7 % (38.7-73.9); Red Cell Distribution Width 13.9 % (9.3-17.3)
[2020-08-12 06:43] LABS: Platelet Count 77 T/CUMM (130-400)
[2020-08-12 06:51] LABS: Anisocytosis Slight; Macrocytosis Slight; Platelet Estimate Decreased
[2020-08-12 07:18] LABS: Hepatitis B Core IgM Quant 0.08 Index; Hepatitis B Surface Ag Quant < 0.10 Index; Hepatitis B Surface Ag Result Negative (Negative); Hepatitis C Virus Ab Quant < 0.02 Index; Hepatitis C Virus Ab Result Negative (Negative)
[2020-08-12 07:49] LABS: Smudge Cells Few
[2020-08-12] MEDS: carvediloL 12.5 MG TABLET PO SCH ×2 (09:09→21:14)
[2020-08-12] MEDS: APIXABAN 2.5 MG TABLET PO SCH ×2 (09:09→21:14)
[2020-08-12] MEDS: POTASSIUM CHLORIDE 20 MEQ TABLET PO SCH ×2 (09:09→21:15)
[2020-08-12] MEDS: MULTIVITAMIN (CENTRUM) TABLET PO SCH (09:09)
[2020-08-12] MEDS: FUROSEMIDE 40 MG TABLET PO SCH (09:09)
[2020-08-12] MEDS: CHOLECALCIFEROL 1,000 UNIT TABLET PO SCH (09:10)
[2020-08-12] MEDS: MAGNESIUM OXIDE 400 MG TABLET PO SCH (09:10)
[2020-08-12] MEDS: LEVOFLOXACIN INJ 250 MG in PREMIX 1 EACH IV SCH (21:14)
[2020-08-13 05:30] LABS: Basophils % 0.3 % (0.0-0.8); Eosinophils # 0.2 10*3/uL (0.0-0.87); Eosinophils % 1.9 % (0.00-10.9); Hematocrit 42.1 VOL% (35.7-47.0); Immature Granulocytes % 0.6 %; Immature Granulocytes Absolute 0.08 #; Lymphocytes # 0.9 10*3/uL (1.4-4.0); Lymphocytes % 7.4 % (21.3-54.2); Mean Corpuscular HGB Conc 33.3 GM/DL (32-36); Mean Corpuscular Volume 95.5 FL (87-102); Mean Platelet Volume 11.5 FL (9.6-12.0); Monocytes % 8.7 % (1.7-12.7); Neutrophils % 81.1 % (38.7-73.9); Red Blood Count 4.41 MC/CUMM (3.8-5.5); Red Cell Distribution Width 13.8 % (9.3-17.3); White Blood Count 12.4 T/CUMM (4-12)
[2020-08-13 05:32] LABS: Platelet Count 83 T/CUMM (130-400)
[2020-08-13 05:56] LABS: Platelet Estimate Decreased
[2020-08-13 05:57] LABS: Calcium 11.4 MG/DL (8.5-10.1); Osmolality,Calculated 296.7 MOS/KG (273-304)
[2020-08-13] MEDS: ALBUTEROL/IPRATROPIUM 3 ML NEB RESP TX SCH ×4 (07:35→19:21)
[2020-08-13] MEDS: FUROSEMIDE 40 MG TABLET PO SCH (09:00)
[2020-08-13] MEDS: POTASSIUM CHLORIDE 20 MEQ TABLET PO SCH ×2 (09:00→20:28)
[2020-08-13] MEDS: MULTIVITAMIN (CENTRUM) TABLET PO SCH (09:00)
[2020-08-13] MEDS: CHOLECALCIFEROL 1,000 UNIT TABLET PO SCH (09:00)
[2020-08-13] MEDS: APIXABAN 2.5 MG TABLET PO SCH ×2 (09:00→20:28)
[2020-08-13] MEDS: carvediloL 12.5 MG TABLET PO SCH ×2 (09:00→20:28)
[2020-08-13] MEDS: MAGNESIUM OXIDE 400 MG TABLET PO SCH (09:01)
[2020-08-13] MEDS: LEVOFLOXACIN INJ 250 MG in PREMIX 1 EACH IV SCH (20:27)
[2020-08-13] MEDS: CYPROHEPTADINE 4 MG TABLET PO SCH (20:28)
[2020-08-14] MEDS: ALBUTEROL/IPRATROPIUM 3 ML NEB RESP TX SCH ×4 (02:13→19:29)
[2020-08-14 04:49] LABS: Basophils # 0.1 10*3/uL (0.0-0.2); Basophils % 0.4 % (0.0-0.8); Eosinophils # 0.2 10*3/uL (0.0-0.87); Eosinophils % 1.8 % (0.00-10.9); Hematocrit 44.3 VOL% (35.7-47.0); Hemoglobin 14.6 GM/DL (12.0-16.0); Immature Granulocytes % 0.8 %; Lymphocytes # 1.1 10*3/uL (1.4-4.0); Lymphocytes % 8.6 % (21.3-54.2); Mean Corpuscular Volume 95.9 FL (87-102); Mean Platelet Volume 12.1 FL (9.6-12.0); Neutrophils % 79.4 % (38.7-73.9); Red Blood Count 4.62 MC/CUMM (3.8-5.5); Red Cell Distribution Width 13.9 % (9.3-17.3); White Blood Count 12.8 T/CUMM (4-12)
[2020-08-14 04:51] LABS: Platelet Count 80 T/CUMM (130-400)
[2020-08-14 05:22] LABS: Calcium 11.7 MG/DL (8.5-10.1); Osmolality,Calculated 296.7 MOS/KG (273-304)
[2020-08-14] MEDS: CHOLECALCIFEROL 1,000 UNIT TABLET PO SCH (09:54)
[2020-08-14] MEDS: MULTIVITAMIN (CENTRUM) TABLET PO SCH (09:55)
[2020-08-14] MEDS: MAGNESIUM OXIDE 400 MG TABLET PO SCH (09:55)
[2020-08-14] MEDS: FUROSEMIDE 40 MG TABLET PO SCH (09:55)
[2020-08-14] MEDS: CYPROHEPTADINE 4 MG TABLET PO SCH ×2 (09:55→20:42)
[2020-08-14] MEDS: POTASSIUM CHLORIDE 20 MEQ TABLET PO SCH ×2 (09:56→20:42)
[2020-08-14] MEDS: carvediloL 12.5 MG TABLET PO SCH ×2 (09:56→20:42)
[2020-08-14] MEDS: APIXABAN 2.5 MG TABLET PO SCH ×2 (09:56→20:42)
[2020-08-14] MEDS: LINEZOLID INJ 600 MG in PREMIX 1 EACH IV SCH (17:13)
[2020-08-14] MEDS: LEVOFLOXACIN INJ 250 MG in PREMIX 1 EACH IV SCH (20:41)
[2020-08-14] MEDS: NYSTATIN 500,000 UNIT/5 ML UDCUP SWISH/SWAL SCH (20:42)
[2020-08-15] MEDS: ALBUTEROL/IPRATROPIUM 3 ML NEB RESP TX SCH ×4 (01:29→19:03)
[2020-08-15 03:48] LABS: Basophils % 0.3 % (0.0-0.8); Eosinophils # 0.2 10*3/uL (0.0-0.87); Eosinophils % 1.7 % (0.00-10.9); Hemoglobin 13.6 GM/DL (12.0-16.0); Immature Granulocytes % 0.6 %; Immature Granulocytes Absolute 0.08 #; Lymphocytes # 1.3 10*3/uL (1.4-4.0); Lymphocytes % 9.8 % (21.3-54.2); Mean Corpuscular HGB Conc 32.4 GM/DL (32-36); Mean Corpuscular Volume 97.2 FL (87-102); Mean Platelet Volume 11.3 FL (9.6-12.0); Monocytes % 10.3 % (1.7-12.7); Neutrophils % 77.3 % (38.7-73.9); Platelet Count 108 T/CUMM (130-400); Red Blood Count 4.32 MC/CUMM (3.8-5.5); Red Cell Distribution Width 13.7 % (9.3-17.3); White Blood Count 12.9 T/CUMM (4-12)
[2020-08-15 04:26] LABS: Calcium 12.1 MG/DL (8.5-10.1); Osmolality,Calculated 298.1 MOS/KG (273-304)
[2020-08-15 04:41] LABS: Hypochromasia 1+; Platelet Estimate Decreased
[2020-08-15] MEDS: LINEZOLID INJ 600 MG in PREMIX 1 EACH IV SCH ×2 (05:14→17:09)
[2020-08-15] MEDS: CYPROHEPTADINE 4 MG TABLET PO SCH ×2 (09:44→22:07)
[2020-08-15] MEDS: carvediloL 12.5 MG TABLET PO SCH ×2 (09:44→22:07)
[2020-08-15] MEDS: NYSTATIN 500,000 UNIT/5 ML UDCUP SWISH/SWAL SCH ×4 (09:44→22:06)
[2020-08-15] MEDS: MAGNESIUM OXIDE 400 MG TABLET PO SCH (09:44)
[2020-08-15] MEDS: POTASSIUM CHLORIDE 20 MEQ TABLET PO SCH ×2 (09:44→22:07)
[2020-08-15] MEDS: MULTIVITAMIN (CENTRUM) TABLET PO SCH (09:44)
[2020-08-15] MEDS: APIXABAN 2.5 MG TABLET PO SCH ×2 (09:44→22:07)
[2020-08-15] MEDS: FUROSEMIDE 40 MG TABLET PO SCH (09:44)
[2020-08-15] MEDS ORDERED: FUROSEMIDE 40 MG TABLET PO SCH (13:08)
[2020-08-15] MEDS: FLUTICASONE 50 MCG NASAL SPRAY 16 GM BOTTLE BOTH NARES SCH (13:58)
[2020-08-15] MEDS: LEVOFLOXACIN INJ 250 MG in PREMIX 1 EACH IV SCH (22:07)
[2020-08-16] MEDS: ALBUTEROL/IPRATROPIUM 3 ML NEB RESP TX SCH ×2 (00:02→07:20)
[2020-08-16 05:46] LABS: Basophils % 0.4 % (0.0-0.8); Eosinophils # 0.2 10*3/uL (0.0-0.87); Eosinophils % 2.2 % (0.00-10.9); Hemoglobin 13.5 GM/DL (12.0-16.0); Immature Granulocytes % 0.6 %; Immature Granulocytes Absolute 0.06 #; Lymphocytes # 1.2 10*3/uL (1.4-4.0); Lymphocytes % 10.6 % (21.3-54.2); Mean Corpuscular HGB Conc 32.9 GM/DL (32-36); Mean Platelet Volume 11.6 FL (9.6-12.0); Monocytes % 8.5 % (1.7-12.7); Neutrophils % 77.7 % (38.7-73.9); Platelet Count 123 T/CUMM (130-400); Red Blood Count 4.27 MC/CUMM (3.8-5.5); Red Cell Distribution Width 13.8 % (9.3-17.3); White Blood Count 10.9 T/CUMM (4-12)
[2020-08-16] MEDS: LINEZOLID INJ 600 MG in PREMIX 1 EACH IV SCH (06:08)
[2020-08-16 06:17] LABS: Calcium 11.9 MG/DL (8.5-10.1)
[2020-08-16 06:21] LABS: Albumin 2.2 G/DL (3.4-5.0); Calcium 11.3 MG/DL (8.5-10.1); Osmolality,Calculated 302.8 MOS/KG (273-304); Total Protein 5.6 G/DL (6.4-8.3)
[2020-08-16] MEDS: NYSTATIN 500,000 UNIT/5 ML UDCUP SWISH/SWAL SCH ×2 (08:27→16:12)
[2020-08-16] MEDS: MULTIVITAMIN (CENTRUM) TABLET PO SCH (08:27)
[2020-08-16] MEDS: MAGNESIUM OXIDE 400 MG TABLET PO SCH (08:27)
[2020-08-16] MEDS: POTASSIUM CHLORIDE 20 MEQ TABLET PO SCH (08:27)
[2020-08-16] MEDS: CYPROHEPTADINE 4 MG TABLET PO SCH (08:27)
[2020-08-16] MEDS: APIXABAN 2.5 MG TABLET PO SCH (08:28)
[2020-08-16] MEDS: carvediloL 12.5 MG TABLET PO SCH (08:28)
[2020-08-16] MEDS: FLUTICASONE 50 MCG NASAL SPRAY 16 GM BOTTLE BOTH NARES SCH (08:37)
[2020-08-16] MEDS ORDERED: predniSONE 20 MG TABLET PO SCH (09:00)
[2020-08-16 12:21] VITALS: BP 113/61
[2020-08-16] MEDS ORDERED: SODIUM CHLORIDE 0.9% 1,000 ML IV SCH (12:30)
[2020-08-16 14:01] LABS: Mycoplasma pneumoniae Ab, IgG Negative (Negative); Mycoplasma pneumoniae Ab, IgM Negative (Negative)
[2020-08-17 09:56] LABS: Myeloperoxidase Antibody 0.6 U
[2020-08-17 13:46] LABS: Antinuclear Ab, S 0.3 U
[2020-08-24 07:52] LABS: c-ANCA Negative (Negative); p-ANCA Positive (Negative)
== END 2020-08-16 17:38 | disposition swing bed (61) | DRG 291 ==
LOC: EDBD → EDUNIT# → N.ED 17:34 → SUATTDRO 21:03 → N.EDINP 21:03 → N.ICU 08-08 06:31 → N.TELES 08-10 15:15
PROVIDERS: ADMIT Internal Medicine; ATTEND Family Medicine

== ENCOUNTER 2020-09-06 17:50 | Observation (INO) ==
[2020-09-06] MEDS ORDERED: SODIUM CHLORIDE 0.9% 500 ML IV STA ×2 (18:24→20:29)
[2020-09-06 19:16] LABS: Basophils % 0.2 % (0.0-0.8); Eosinophils % 0.2 % (0.00-10.9); Hemoglobin 11.7 GM/DL (12.0-16.0); Immature Granulocytes % 0.6 %; Immature Granulocytes Absolute 0.08 #; Lymphocytes # 1.1 10*3/uL (1.4-4.0); Lymphocytes % 8.8 % (21.3-54.2); Mean Corpuscular HGB Conc 34.4 GM/DL (32-36); Mean Corpuscular Volume 90.9 FL (87-102); Mean Platelet Volume 11.1 FL (9.6-12.0); Monocytes % 6.1 % (1.7-12.7); Neutrophils % 84.1 % (38.7-73.9); Platelet Count 86 T/CUMM (130-400); Red Blood Count 3.74 MC/CUMM (3.8-5.5); White Blood Count 12.6 T/CUMM (4-12)
[2020-09-06 19:27] LABS: INR 1.2
[2020-09-06 19:40] LABS: Calcium 7.1 MG/DL (8.5-10.1); Osmolality,Calculated 309.7 MOS/KG (273-304); Potassium 3.8 MMOL/L (3.5-5.1); Thyroid Stimulating Hormone 0.959 uIU/ml (0.358-3.74); Total Protein 4.4 G/DL (6.4-8.3)
[2020-09-06 19:43] LABS: Bacteria,Urine Moderate /HPF (Few); Bilirubin,Urine Negative (Negative); Blood, Urine Large mg/dL (Negative); Glucose,Urine (UA) Negative (Negative); Hyaline Casts,Urine 4 /LPF (0-3); Ketones,Urine Negative (Negative); Nitrite,Urine Negative (Negative); Protein,Urine Negative; RBC,Urine 113 /HPF (0-4); Squamous Epithelial Cell,Urine Occasional /HPF (0-10); Urine Appearance Slightly Hazy (Clear); Urine Color Yellow (Yellow); Urine Specific Gravity 1.012 (1.001-1.035); Urine Urobilinogen < 2.0 EU/DL (0.2-1.0); WBC,Urine 71 /HPF (0-6)
[2020-09-06 20:17] LABS: Hypochromasia 1+
[2020-09-06 20:18] LABS: Platelet Estimate Adequate
[2020-09-06] MEDS ORDERED: LEVOFLOXACIN INJ 500 MG in PREMIX 1 EACH IV STA (20:28)
[2020-09-06] MEDS ORDERED: ONDANSETRON 4 MG/2 ML VIAL IV PRN (21:33)
[2020-09-06] MEDS ORDERED: diphenhydrAMINE CAP 25 MG CAPSULE PO PRN (21:33)
[2020-09-06] MEDS ORDERED: guaiFENesin/DM ER 600-30 MG TABLET PO PRN (21:33)
[2020-09-06] MEDS ORDERED: GLUCAGON 1 MG VIAL IM PRN (21:33)
[2020-09-06] MEDS ORDERED: NICOTINE 21 MG/24 HR PATCH TRANSDERM PRN (21:33)
[2020-09-06] MEDS ORDERED: DEXTROSE 50% 25 GM/50 ML VIAL IV PRN (21:33)
[2020-09-06] MEDS ORDERED: SODIUM CHLORIDE 0.9% 1,000 ML IV SCH (22:00)
[2020-09-07 09:55] LABS: Basophils % 0.1 % (0.0-0.8); Eosinophils # 0.1 10*3/uL (0.0-0.87); Eosinophils % 0.5 % (0.00-10.9); Hematocrit 30.4 VOL% (35.7-47.0); Hemoglobin 10.4 GM/DL (12.0-16.0); Immature Granulocytes % 0.5 %; Immature Granulocytes Absolute 0.05 #; Lymphocytes # 0.7 10*3/uL (1.4-4.0); Lymphocytes % 7.6 % (21.3-54.2); Mean Corpuscular HGB Conc 34.2 GM/DL (32-36); Mean Corpuscular Volume 91.3 FL (87-102); Monocytes % 6.6 % (1.7-12.7); Neutrophils % 84.7 % (38.7-73.9); Red Blood Count 3.33 MC/CUMM (3.8-5.5); Red Cell Distribution Width 14.1 % (9.3-17.3); White Blood Count 9.7 T/CUMM (4-12)
[2020-09-07 10:02] LABS: Platelet Count 74 T/CUMM (130-400)
[2020-09-07 10:12] LABS: Osmolality,Calculated 302.3 MOS/KG (273-304); Potassium 3.2 MMOL/L (3.5-5.1)
[2020-09-07 10:13] LABS: Hypochromasia 1+
[2020-09-07 10:14] LABS: Microcytosis 1+; Platelet Estimate Decreased
[2020-09-07] MEDS: POTASSIUM CHLORIDE 20 MEQ TABLET PO PRN ×4 (17:31→23:30)
[2020-09-08 05:58] LABS: Basophils % 0.2 % (0.0-0.8); Eosinophils # 0.1 10*3/uL (0.0-0.87); Eosinophils % 0.5 % (0.00-10.9); Hematocrit 33.5 VOL% (35.7-47.0); Hemoglobin 11.2 GM/DL (12.0-16.0); Immature Granulocytes % 0.7 %; Immature Granulocytes Absolute 0.07 #; Mean Corpuscular HGB Conc 33.4 GM/DL (32-36); Mean Corpuscular Volume 93.1 FL (87-102); Mean Platelet Volume 11.1 FL (9.6-12.0); Monocytes % 7.6 % (1.7-12.7); Platelet Count 70 T/CUMM (130-400); Red Cell Distribution Width 14.1 % (9.3-17.3); White Blood Count 9.9 T/CUMM (4-12)
[2020-09-08 06:17] LABS: Calcium 7.6 MG/DL (8.5-10.1); Osmolality,Calculated 297.3 MOS/KG (273-304); Osmolality,Calculated 299.1 MOS/KG (273-304); Potassium 4.9 MMOL/L (3.5-5.1)
[2020-09-08 07:19] VITALS: BP 123/61
[2020-09-08] MEDS ORDERED: MULTIVITAMIN (CENTRUM) TABLET PO SCH (09:00)
[2020-09-08] MEDS ORDERED: LEVOFLOXACIN INJ 500 MG in PREMIX 1 EACH IV SCH (20:00)
== END 2020-09-08 12:23 | disposition home or self-care (01) ==
LOC: EDUNIT# → EDBD → N.EDINP 17:50 → N.ED 17:50 → N.5E 22:33
PROVIDERS: ADMIT Internal Medicine; ATTEND Internal Medicine